=== PATIENT | male | born 1955 | race African-American/Black ===

== ENCOUNTER 2019-12-15 02:03 | Inpatient (IN) | payer MEDICAID ==
[2019-12-15] VITALS (39 sets, daily range): BP systolic 102–156; BP diastolic 41–73
[~2019-12-15] VITALS: Ht 188 cm; Wt 126.3 kg
[2019-12-15 03:15] LABS: Basophils # (auto) 0 10 ^3/uL (0-0.2); Basophils % (auto) 0.4 % (0.0-2.0); Eosinophils # (auto) 0 10 ^3/uL (0-0.8); Eosinophils % (auto) 0.6 % (0.0-7.0); Hematocrit 38.7 % (41.0-53.0); Hemoglobin 12.7 g/dL (13.5-17.5); Lymphocytes # (auto) 2.8 10 ^3/uL (0.4-5.4); Lymphocytes % (auto) 46.5 % (10.0-50.0); Mean Corpuscular Hgb Conc. 32.8 g/dL (32.0-36.0); Mean Corpuscular Volume 94.5 fL (80.0-100.0); Monocytes # (auto) 0.6 10 ^3/uL (0-1.3); Monocytes % (auto) 9.3 % (0.0-12.0); Neutrophils # (auto) 2.6 10 ^3/uL (1.6-8.6); Neutrophils % (auto) 43.2 % (37.0-80.0); Nucleated Red Blood Cells % 0.1 %; Platelet Count (auto) 123 10^3/uL (140-450); Red Cell Distribution Width 14.3 % (11.8-14.3)
[2019-12-15 03:30] LABS: INR 1.11 (0.9-1.15); Partial Thromboplastin Time 26.4 sec (23.64-32.05)
[2019-12-15 03:34] LABS: Albumin 3.5 g/dL (3.4-5.0); Calcium 7.9 mg/dL (8.5-10.1); Magnesium 1.7 mg/dL (1.6-2.6); Potassium 4.3 mmol/L (3.5-5.1)
[2019-12-15 03:36] LABS: BUN/Creatinine Ratio 11.7
[2019-12-15 03:41] LABS: Bilirubin, Total 0.4 mg/dL (0.2-1.0)
[2019-12-15 07:22] LABS: Urine Bacteria FEW /hpf (None Seen); Urine Blood Negative /uL (Negative); Urine Hyaline Cast FEW /lpf (0 - 2); Urine Specific Gravity 1.013 (1.001-1.035); Urine WBC 1 /hpf (0 - 3)
[2019-12-15] MEDS ORDERED: ONDANSETRON HCL 4 MG/2 ML VIAL IV ONE ×2 (09:15→11:45)
[2019-12-15] MEDS ORDERED: MORPHINE SULF INJ 2 MG/ML SYRINGE 1ML IV ONE ×2 (09:15→11:45)
[2019-12-15] MEDS ORDERED: DOPamine 1600MCG/ML D5W 250 ML IV ONE (10:00)
[2019-12-15] MEDS: SODIUM CHLORIDE 0.9% 1,000 ML IV SCH (10:25)
[2019-12-15] MEDS ORDERED: DEXTROSE (50%) 50ML SYRG IV PRN ×2 (12:15)
[2019-12-15] MEDS ORDERED: MORPHINE SULF INJ 2 MG/ML SYRINGE 1ML IV PRN (12:15)
[2019-12-15] MEDS ORDERED: FAMOTIDINE 20 MG TAB PO ONE (12:15)
[2019-12-15] MEDS ORDERED: ONDANSETRON HCL 4 MG/2 ML VIAL IV PRN (12:15)
[2019-12-15] MEDS ORDERED: NITROGLYCERIN 0.4 MG SL TAB SL PRN (12:15)
[2019-12-15] MEDS ORDERED: VERAPAMIL 2.5MG/ML INJ 2ML VIAL IV ONE (12:43)
[2019-12-15] MEDS ORDERED: HEPARIN SODIUM (PORCINE) 5000 UNITS/ML 1ML VIAL ONE (12:43)
[2019-12-15] MEDS ORDERED: ANGIOMAX 250 MG VIAL IV ONE (12:43)
[2019-12-15] MEDS ORDERED: MIDAZOLAM HCL 1MG/1ML-2 ML VIAL ONE (12:44)
[2019-12-15] MEDS ORDERED: LIDOCAINE 2%HCL (LOCAL ANESTH.) INJ 20ML MDV ONE (12:44)
[2019-12-15] MEDS ORDERED: fentaNYL CITRATE 100 MCG/2 ML VL ONE (12:44)
[2019-12-15] MEDS ORDERED: SODIUM CHL 0.9% 0 ML ONE (12:44)
[2019-12-15] MEDS ORDERED: IODIXANOL 320MG/ML 100ML BTL IV ONE ×2 (12:47→13:42)
[2019-12-15] MEDS: DOPamine 1600MCG/ML D5W 250 ML IV SCH ×2 (15:47→21:39)
[2019-12-15] MEDS: ACETAMINOPHEN 500 MG TAB PO PRN (15:48)
[2019-12-15] MEDS ORDERED: ACCU-CHEK COMFORT CURVE STRIP VI SCH (17:00)
[2019-12-15] MEDS ORDERED: InsuLIN REG 1unit/0.01ml Soln (100units/ml) SC SCH (17:00)
[2019-12-15] MEDS: ACCU-CHEK COMFORT CURVE STRIP VI SCH ×2 (17:15→21:41)
[2019-12-15] MEDS: InsuLIN REG 1unit/0.01ml Soln (100units/ml) SC SCH ×2 (17:19→21:46)
[2019-12-15] MEDS: HYDROcodone-ACET 5/325MG TAB PO PRN (19:42)
[2019-12-15] MEDS: ATORVASTATIN 20 MG TAB PO SCH (21:40)
[2019-12-16] VITALS (77 sets, daily range): BP systolic 83–156; BP diastolic 27–125
[2019-12-16 03:52] LABS: Basophils # (auto) 0 10 ^3/uL (0-0.2); Basophils % (auto) 0.3 % (0.0-2.0); Eosinophils # (auto) 0 10 ^3/uL (0-0.8); Eosinophils % (auto) 0.3 % (0.0-7.0); Hematocrit 35.4 % (41.0-53.0); Hemoglobin 11.8 g/dL (13.5-17.5); Lymphocytes # (auto) 1.4 10 ^3/uL (0.4-5.4); Lymphocytes % (auto) 25.2 % (10.0-50.0); Mean Corpuscular Hgb Conc. 33.3 g/dL (32.0-36.0); Mean Corpuscular Volume 92.9 fL (80.0-100.0); Monocytes # (auto) 0.7 10 ^3/uL (0-1.3); Monocytes % (auto) 11.8 % (0.0-12.0); Neutrophils # (auto) 3.6 10 ^3/uL (1.6-8.6); Neutrophils % (auto) 62.4 % (37.0-80.0); Nucleated Red Blood Cells % 0.2 %; Platelet Count (auto) 109 10^3/uL (140-450); Red Blood Cells 3.81 10^6/uL (4.5-5.90); Red Cell Distribution Width 14.1 % (11.8-14.3); White Blood Cell 5.7 10^3/uL (4.4-10.8)
[2019-12-16 04:09] LABS: INR 1.11 (0.9-1.15); Partial Thromboplastin Time 26.4 sec (23.64-32.05)
[2019-12-16 04:11] LABS: Calcium 7.8 mg/dL (8.5-10.1); Potassium 4.6 mmol/L (3.5-5.1)
[2019-12-16 04:14] LABS: BUN/Creatinine Ratio 14.5
[2019-12-16] MEDS: ACCU-CHEK COMFORT CURVE STRIP VI SCH ×4 (06:40→22:00)
[2019-12-16] MEDS: InsuLIN REG 1unit/0.01ml Soln (100units/ml) SC SCH ×4 (06:41→22:52)
[2019-12-16] MEDS: ASPirin-EC 81 mg tab PO SCH (09:35)
[2019-12-16] MEDS: FAMOTIDINE 20 MG TAB PO SCH (09:35)
[2019-12-16] MEDS: SODIUM CHLORIDE 0.9% 1,000 ML IV SCH (09:36)
[2019-12-16] MEDS ORDERED: MELO1TAB73 PO (10:24)
[2019-12-16] MEDS ORDERED: OMEP20TA PO (10:24)
[2019-12-16] MEDS ORDERED: BUPR100T14 PO (10:24)
[2019-12-16] MEDS ORDERED: SIMV-8 PO (10:24)
[2019-12-16] MEDS ORDERED: AMLO5TAB15 PO (10:24)
[2019-12-16] MEDS ORDERED: BENA40TA7 PO (10:24)
[2019-12-16] MEDS ORDERED: TRIATAB3 PO (10:24)
[2019-12-16] MEDS ORDERED: FERR27TA2 PO (10:24)
[2019-12-16] MEDS ORDERED: METF-370 PO (10:24)
[2019-12-16] MEDS ORDERED: TAMS0.4C36 PO (10:24)
[2019-12-16] MEDS ORDERED: ARIP1TAB7 PO (10:24)
[2019-12-16] MEDS ORDERED: FENO54TA4 PO (10:24)
[2019-12-16] MEDS ORDERED: TRAZ100T3 PO (10:24)
[2019-12-16] MEDS ORDERED: cefTRIAXone 1GM/50ML D5W 50 ML IV ONE (10:30)
[2019-12-16] MEDS ORDERED: DIPH2.5T73 PO (10:43)
[2019-12-16] MEDS ORDERED: METO-158 PO (10:43)
[2019-12-16] MEDS ORDERED: CLOP75TA28 PO (10:43)
[2019-12-16] MEDS ORDERED: DOCU-55 PO (10:43)
[2019-12-16] MEDS: DOPamine 1600MCG/ML D5W 250 ML IV SCH (13:12)
[2019-12-16] MEDS: HYDROcodone-ACET 5/325MG TAB PO PRN (16:56)
[2019-12-16] MEDS: ACETAMINOPHEN 500 MG TAB PO PRN (20:16)
[2019-12-16] MEDS: ATORVASTATIN 20 MG TAB PO SCH (22:00)
[2019-12-16] MEDS: ALBUTEROL SULF 2.5 MG/0.5ML(0.5%) NEB SOLN NEB PRN (23:31)
[2019-12-17] VITALS (36 sets, daily range): BP systolic 114–166; BP diastolic 46–109
[2019-12-17] MEDS: HYDROcodone-ACET 5/325MG TAB PO PRN ×2 (00:13→18:23)
[2019-12-17 04:28] LABS: Basophils # (auto) 0 10 ^3/uL (0-0.2); Basophils % (auto) 0.3 % (0.0-2.0); Eosinophils # (auto) 0 10 ^3/uL (0-0.8); Eosinophils % (auto) 0.4 % (0.0-7.0); Hematocrit 35.7 % (41.0-53.0); Lymphocytes # (auto) 1.6 10 ^3/uL (0.4-5.4); Lymphocytes % (auto) 34.1 % (10.0-50.0); Mean Corpuscular Hemoglobin 31.5 pg (28.0-32.0); Mean Corpuscular Hgb Conc. 33.5 g/dL (32.0-36.0); Monocytes # (auto) 0.6 10 ^3/uL (0-1.3); Monocytes % (auto) 12.8 % (0.0-12.0); Neutrophils # (auto) 2.4 10 ^3/uL (1.6-8.6); Neutrophils % (auto) 52.4 % (37.0-80.0); Nucleated Red Blood Cells % 0.1 %; Platelet Count (auto) 110 10^3/uL (140-450); Red Cell Distribution Width 14.5 % (11.8-14.3); White Blood Cell 4.6 10^3/uL (4.4-10.8)
[2019-12-17 05:00] LABS: Potassium 4.5 mmol/L (3.5-5.1)
[2019-12-17 05:10] LABS: Albumin 3.3 g/dL (3.4-5.0); BUN/Creatinine Ratio 16.4; Bilirubin, Total 0.3 mg/dL (0.2-1.0); Calcium 8.1 mg/dL (8.5-10.1); Magnesium 1.8 mg/dL (1.6-2.6); Total Protein 6.6 g/dL (6.4-8.2)
[2019-12-17] MEDS: InsuLIN REG 1unit/0.01ml Soln (100units/ml) SC SCH ×4 (07:03→23:56)
[2019-12-17] MEDS: ACCU-CHEK COMFORT CURVE STRIP VI SCH ×4 (07:03→23:54)
[2019-12-17] MEDS: cefTRIAXone 1GM/50ML D5W 50 ML IV SCH (08:56)
[2019-12-17] MEDS: SODIUM CHLORIDE 0.9% 1,000 ML IV SCH (10:00)
[2019-12-17] MEDS: ASPirin-EC 81 mg tab PO SCH (10:08)
[2019-12-17] MEDS: FAMOTIDINE 20 MG TAB PO SCH (10:08)
[2019-12-17] MEDS: DOPamine 1600MCG/ML D5W 250 ML IV SCH ×2 (11:00→17:23)
[2019-12-17] MEDS ORDERED: ROCURONIUM 10MG/ML 10ML VIAL IV ONE (15:13)
[2019-12-17] MEDS: IPRATROPIUM BROM 0.5 MG/2.5ML INH SOL NEB PRN (19:38)
[2019-12-17] MEDS: ALBUTEROL SULF 2.5 MG/0.5ML(0.5%) NEB SOLN NEB PRN (19:38)
[2019-12-17] MEDS ORDERED: traZODone HCL 50 MG TAB PO ONE (23:00)
[2019-12-17] MEDS ORDERED: traZODone HCL 50 MG TAB ONE ×2 (23:22→23:25)
[2019-12-17] MEDS: ATORVASTATIN 20 MG TAB PO SCH (23:54)
[2019-12-18] VITALS (23 sets, daily range): BP systolic 101–156; BP diastolic 48–83
[2019-12-18 04:29] LABS: Basophils # (auto) 0 10 ^3/uL (0-0.2); Basophils % (auto) 0.4 % (0.0-2.0); Eosinophils # (auto) 0 10 ^3/uL (0-0.8); Eosinophils % (auto) 0.8 % (0.0-7.0); Hematocrit 37.7 % (41.0-53.0); Hemoglobin 12.2 g/dL (13.5-17.5); Lymphocytes # (auto) 1.5 10 ^3/uL (0.4-5.4); Lymphocytes % (auto) 32.7 % (10.0-50.0); Mean Corpuscular Hemoglobin 30.9 pg (28.0-32.0); Mean Corpuscular Hgb Conc. 32.5 g/dL (32.0-36.0); Mean Corpuscular Volume 95.1 fL (80.0-100.0); Monocytes # (auto) 0.5 10 ^3/uL (0-1.3); Monocytes % (auto) 11.2 % (0.0-12.0); Neutrophils # (auto) 2.5 10 ^3/uL (1.6-8.6); Neutrophils % (auto) 54.9 % (37.0-80.0); Platelet Count (auto) 117 10^3/uL (140-450); Red Blood Cells 3.96 10^6/uL (4.5-5.90); Red Cell Distribution Width 14.3 % (11.8-14.3); White Blood Cell 4.5 10^3/uL (4.4-10.8)
[2019-12-18 04:51] LABS: Potassium 4.4 mmol/L (3.5-5.1)
[2019-12-18 04:58] LABS: BUN/Creatinine Ratio 14.6; Calcium 8.6 mg/dL (8.5-10.1)
[2019-12-18] MEDS: ACCU-CHEK COMFORT CURVE STRIP VI SCH ×4 (06:57→21:57)
[2019-12-18] MEDS: InsuLIN REG 1unit/0.01ml Soln (100units/ml) SC SCH ×4 (06:58→22:04)
[2019-12-18] MEDS ORDERED: LIDOCAINE 2%HCL (LOCAL ANESTH.) INJ 20ML MDV ONE ×2 (07:55→08:47)
[2019-12-18] MEDS ORDERED: fentaNYL CITRATE 100 MCG/2 ML VL ONE (08:04)
[2019-12-18] MEDS ORDERED: VANCOMYCIN HCL 1000 MG VL ONE (08:04)
[2019-12-18] MEDS ORDERED: VANCOMYCIN 1GM/250ML 250 ML IV ONE (08:04)
[2019-12-18] MEDS ORDERED: MIDAZOLAM HCL 1MG/1ML-2 ML VIAL ONE (08:04)
[2019-12-18] MEDS ORDERED: IODIXANOL 320MG/ML 100ML BTL IV ONE (08:05)
[2019-12-18] MEDS: cefTRIAXone 1GM/50ML D5W 50 ML IV SCH (09:00)
[2019-12-18] MEDS: VANCOMYCIN 1GM/250ML 250 ML IV SCH ×2 (10:00→21:56)
[2019-12-18] MEDS: ASPirin-EC 81 mg tab PO SCH (10:00)
[2019-12-18] MEDS: SODIUM CHLORIDE 0.9% 1,000 ML IV SCH (10:00)
[2019-12-18] MEDS: FAMOTIDINE 20 MG TAB PO SCH (10:36)
[2019-12-18] MEDS ORDERED: DOXYCYCLINE 100 MG TAB/CAP PO ONE (13:00)
[2019-12-18] MEDS: HYDROcodone-ACET 5/325MG TAB PO PRN ×2 (14:55→21:56)
[2019-12-18] MEDS: DOXYCYCLINE 100 MG TAB/CAP PO SCH (21:57)
[2019-12-18] MEDS: ATORVASTATIN 20 MG TAB PO SCH (21:57)
[2019-12-18] MEDS: traZODone HCL 50 MG TAB PO SCH (23:10)
[2019-12-19 00:55] VITALS: BP 148/74
[2019-12-19] MEDS: MORPHINE SULF INJ 2 MG/ML SYRINGE 1ML IV PRN ×3 (02:40→20:36)
[2019-12-19] MEDS: IPRATROPIUM BROM 0.5 MG/2.5ML INH SOL NEB PRN ×2 (04:51→11:34)
[2019-12-19] MEDS: ALBUTEROL SULF 2.5 MG/0.5ML(0.5%) NEB SOLN NEB PRN ×2 (04:51→11:33)
[2019-12-19] MEDS: HYDROcodone-ACET 5/325MG TAB PO PRN ×2 (04:55→14:18)
[2019-12-19 05:00] VITALS: BP 142/82
[2019-12-19] MEDS: ACCU-CHEK COMFORT CURVE STRIP VI SCH ×4 (06:38→22:39)
[2019-12-19] MEDS: InsuLIN REG 1unit/0.01ml Soln (100units/ml) SC SCH ×4 (06:40→22:44)
[2019-12-19 06:46] LABS: Basophils # (auto) 0 10 ^3/uL (0-0.2); Basophils % (auto) 0.3 % (0.0-2.0); Eosinophils # (auto) 0 10 ^3/uL (0-0.8); Eosinophils % (auto) 0.8 % (0.0-7.0); Hematocrit 36.6 % (41.0-53.0); Lymphocytes # (auto) 1.6 10 ^3/uL (0.4-5.4); Mean Corpuscular Hgb Conc. 32.7 g/dL (32.0-36.0); Mean Corpuscular Volume 94.6 fL (80.0-100.0); Monocytes # (auto) 0.6 10 ^3/uL (0-1.3); Monocytes % (auto) 11.2 % (0.0-12.0); Neutrophils # (auto) 2.9 10 ^3/uL (1.6-8.6); Neutrophils % (auto) 56.7 % (37.0-80.0); Platelet Count (auto) 110 10^3/uL (140-450); Red Blood Cells 3.87 10^6/uL (4.5-5.90); White Blood Cell 5.2 10^3/uL (4.4-10.8)
[2019-12-19 07:06] LABS: Calcium 8.4 mg/dL (8.5-10.1); Magnesium 1.8 mg/dL (1.6-2.6); Potassium 4.1 mmol/L (3.5-5.1)
[2019-12-19 07:10] LABS: BUN/Creatinine Ratio 14.3
[2019-12-19 08:00] VITALS: BP 131/91
[2019-12-19] MEDS: FAMOTIDINE 20 MG TAB PO SCH (08:57)
[2019-12-19] MEDS: DOXYCYCLINE 100 MG TAB/CAP PO SCH ×2 (08:58→22:37)
[2019-12-19] MEDS: ASPirin-EC 81 mg tab PO SCH (09:01)
[2019-12-19] MEDS ORDERED: MAGNESIUM SULFATE 1GM/100ML 100 ML IV ONE (10:00)
[2019-12-19] MEDS: SODIUM CHLORIDE 0.9% 1,000 ML IV SCH (11:12)
[2019-12-19] MEDS ORDERED: DOX100T PO (11:39)
[2019-12-19 12:00] VITALS: BP 151/99
[2019-12-19 16:30] VITALS: BP 139/87
[2019-12-19 21:40] VITALS: BP 120/71
[2019-12-19] MEDS: ATORVASTATIN 20 MG TAB PO SCH (22:37)
[2019-12-19] MEDS: traZODone HCL 50 MG TAB PO SCH (22:37)
[2019-12-20] MEDS: HYDROcodone-ACET 5/325MG TAB PO PRN ×2 (01:29→14:18)
[2019-12-20] MEDS: MORPHINE SULF INJ 2 MG/ML SYRINGE 1ML IV PRN ×3 (03:15→17:03)
[2019-12-20 05:09] VITALS: BP 181/50
[2019-12-20] MEDS: InsuLIN REG 1unit/0.01ml Soln (100units/ml) SC SCH ×4 (06:38→22:47)
[2019-12-20] MEDS: ACCU-CHEK COMFORT CURVE STRIP VI SCH ×4 (06:41→22:45)
[2019-12-20 08:00] VITALS: BP 151/84
[2019-12-20] MEDS: DOXYCYCLINE 100 MG TAB/CAP PO SCH ×2 (09:25→22:41)
[2019-12-20] MEDS: FAMOTIDINE 20 MG TAB PO SCH (09:25)
[2019-12-20 12:00] VITALS: BP 148/82
[2019-12-20] MEDS: DOCUSATE SOD 100 MG CAP PO PRN (14:17)
[2019-12-20 17:00] VITALS: BP 139/82
[2019-12-20] MEDS: IPRATROPIUM BROM 0.5 MG/2.5ML INH SOL NEB PRN (21:04)
[2019-12-20] MEDS: ALBUTEROL SULF 2.5 MG/0.5ML(0.5%) NEB SOLN NEB PRN (21:04)
[2019-12-20] MEDS: traZODone HCL 50 MG TAB PO SCH (22:41)
[2019-12-20] MEDS: ATORVASTATIN 20 MG TAB PO SCH (22:41)
[2019-12-20 22:56] VITALS: BP 163/84
[2019-12-21] MEDS: MORPHINE SULF INJ 2 MG/ML SYRINGE 1ML IV PRN ×4 (02:28→23:48)
[2019-12-21] MEDS: ALBUTEROL SULF 2.5 MG/0.5ML(0.5%) NEB SOLN NEB PRN ×3 (03:41→22:29)
[2019-12-21] MEDS: IPRATROPIUM BROM 0.5 MG/2.5ML INH SOL NEB PRN ×3 (03:41→22:29)
[2019-12-21 05:17] VITALS: BP 163/76
[2019-12-21] MEDS: InsuLIN REG 1unit/0.01ml Soln (100units/ml) SC SCH ×4 (07:00→23:48)
[2019-12-21] MEDS: ACCU-CHEK COMFORT CURVE STRIP VI SCH ×4 (07:38→23:24)
[2019-12-21 09:00] VITALS: BP 128/79
[2019-12-21] MEDS: DOXYCYCLINE 100 MG TAB/CAP PO SCH ×2 (09:06→23:23)
[2019-12-21] MEDS: FAMOTIDINE 20 MG TAB PO SCH (09:06)
[2019-12-21] MEDS: DOCUSATE SOD 100 MG CAP PO PRN (09:09)
[2019-12-21 13:00] VITALS: BP 134/94
[2019-12-21] MEDS ORDERED: LACTULOSE 20Gm/30ML SOLN PO ONE (15:00)
[2019-12-21 17:00] VITALS: BP 134/82
[2019-12-21 20:03] VITALS: BP 134/82
[2019-12-21 22:07] VITALS: BP 137/85
[2019-12-21] MEDS: ATORVASTATIN 20 MG TAB PO SCH (23:23)
[2019-12-21] MEDS: traZODone HCL 50 MG TAB PO SCH (23:23)
[2019-12-21] MEDS: LACTULOSE 20Gm/30ML SOLN PO PRN (23:48)
[2019-12-22] MEDS: DOCUSATE SOD 100 MG CAP PO PRN (04:55)
[2019-12-22 05:27] VITALS: BP 168/90
[2019-12-22] MEDS: ACCU-CHEK COMFORT CURVE STRIP VI SCH ×4 (06:15→21:52)
[2019-12-22] MEDS: MORPHINE SULF INJ 2 MG/ML SYRINGE 1ML IV PRN ×3 (06:16→20:37)
[2019-12-22] MEDS: InsuLIN REG 1unit/0.01ml Soln (100units/ml) SC SCH ×4 (06:22→21:50)
[2019-12-22 09:00] VITALS: BP 130/92
[2019-12-22] MEDS: FAMOTIDINE 20 MG TAB PO SCH (10:13)
[2019-12-22] MEDS: DOXYCYCLINE 100 MG TAB/CAP PO SCH ×2 (10:13→21:43)
[2019-12-22 10:43] LABS: BUN/Creatinine Ratio 15.5; Calcium 8.3 mg/dL (8.5-10.1); Potassium 3.8 mmol/L (3.5-5.1)
[2019-12-22] MEDS ORDERED: FLEET ENEMA(ADULT) 135 ML PR ONE (10:45)
[2019-12-22] MEDS: LACTULOSE 20Gm/30ML SOLN PO PRN (11:00)
[2019-12-22 13:00] VITALS: BP 116/76
[2019-12-22 13:44] LABS: Basophils # (auto) 0 10 ^3/uL (0-0.2); Basophils % (auto) 0.7 % (0.0-2.0); Eosinophils # (auto) 0.1 10 ^3/uL (0-0.8); Eosinophils % (auto) 0.9 % (0.0-7.0); Hematocrit 38.8 % (41.0-53.0); Hemoglobin 12.5 g/dL (13.5-17.5); Lymphocytes # (auto) 1.6 10 ^3/uL (0.4-5.4); Lymphocytes % (auto) 21.5 % (10.0-50.0); Mean Corpuscular Hemoglobin 30.7 pg (28.0-32.0); Mean Corpuscular Hgb Conc. 32.2 g/dL (32.0-36.0); Mean Corpuscular Volume 95.3 fL (80.0-100.0); Monocytes # (auto) 0.7 10 ^3/uL (0-1.3); Monocytes % (auto) 9.8 % (0.0-12.0); Neutrophils # (auto) 4.9 10 ^3/uL (1.6-8.6); Neutrophils % (auto) 67.1 % (37.0-80.0); Nucleated Red Blood Cells % 0.1 %; Platelet Count (auto) 128 10^3/uL (140-450); Red Blood Cells 4.07 10^6/uL (4.5-5.90); Red Cell Distribution Width 14.2 % (11.8-14.3); White Blood Cell 7.2 10^3/uL (4.4-10.8)
[2019-12-22] MEDS: ASPirin-EC 81 mg tab PO SCH (14:12)
[2019-12-22 17:00] VITALS: BP 131/90
[2019-12-22] MEDS: ATORVASTATIN 20 MG TAB PO SCH (21:43)
[2019-12-22] MEDS: traZODone HCL 50 MG TAB PO SCH (21:43)
[2019-12-22 22:00] VITALS: BP 132/72
[2019-12-23] MEDS: MORPHINE SULF INJ 2 MG/ML SYRINGE 1ML IV PRN ×2 (02:56→09:04)
[2019-12-23 05:00] VITALS: BP 149/87
[2019-12-23 06:21] LABS: Basophils # (auto) 0 10 ^3/uL (0-0.2); Basophils % (auto) 0.4 % (0.0-2.0); Eosinophils # (auto) 0.1 10 ^3/uL (0-0.8); Eosinophils % (auto) 1.2 % (0.0-7.0); Hematocrit 32.7 % (41.0-53.0); Hemoglobin 10.8 g/dL (13.5-17.5); Lymphocytes # (auto) 1.8 10 ^3/uL (0.4-5.4); Lymphocytes % (auto) 29.1 % (10.0-50.0); Monocytes # (auto) 0.7 10 ^3/uL (0-1.3); Monocytes % (auto) 11.5 % (0.0-12.0); Neutrophils # (auto) 3.6 10 ^3/uL (1.6-8.6); Neutrophils % (auto) 57.8 % (37.0-80.0); Nucleated Red Blood Cells % 0.1 %; Platelet Count (auto) 121 10^3/uL (140-450); Red Blood Cells 3.47 10^6/uL (4.5-5.90); Red Cell Distribution Width 13.9 % (11.8-14.3); White Blood Cell 6.3 10^3/uL (4.4-10.8)
[2019-12-23] MEDS: InsuLIN REG 1unit/0.01ml Soln (100units/ml) SC SCH ×2 (06:38→13:18)
[2019-12-23] MEDS: ACCU-CHEK COMFORT CURVE STRIP VI SCH ×2 (06:38→13:18)
[2019-12-23 06:40] LABS: BUN/Creatinine Ratio 15.7; Calcium 8.3 mg/dL (8.5-10.1); Potassium 3.8 mmol/L (3.5-5.1)
[2019-12-23 09:00] VITALS: BP 130/78
[2019-12-23] MEDS: DOXYCYCLINE 100 MG TAB/CAP PO SCH (09:03)
[2019-12-23] MEDS: ASPirin-EC 81 mg tab PO SCH (09:03)
[2019-12-23] MEDS: FAMOTIDINE 20 MG TAB PO SCH (09:03)
[2019-12-23] MEDS: IPRATROPIUM BROM 0.5 MG/2.5ML INH SOL NEB PRN (12:01)
[2019-12-23] MEDS: ALBUTEROL SULF 2.5 MG/0.5ML(0.5%) NEB SOLN NEB PRN (12:02)
[2019-12-23 13:00] VITALS: BP 127/87
[2019-12-23] MEDS: HYDROcodone-ACET 5/325MG TAB PO PRN (15:06)
[2019-12-23 15:33] VITALS: BP 127/87
== END 2019-12-23 16:40 | disposition hospice, home (50) | DRG 171 ==
LOC: ER 02:06 → ICU WEST 02:07 → TELE-EAST 12-18 16:57
PROVIDERS: ADMIT Nurse Practitioner Acute Care; ATTEND Internal Medicine
PROC: 4A023N7 Measurement of Cardiac Sampling and Pressure, Left Heart, Percutaneous Approach (ICD-10-PCS; principal; 2019-12-15)
PROC: B211YZZ Fluoroscopy of Multiple Coronary Arteries using Other Contrast (ICD-10-PCS; 2019-12-15)
PROC: B215YZZ Fluoroscopy of Left Heart using Other Contrast (ICD-10-PCS; 2019-12-15)
PROC: 03HB33Z Insertion of Infusion Device into Right Radial Artery, Percutaneous Approach (ICD-10-PCS; 2019-12-15)
PROC: 02H63JZ Insertion of Pacemaker Lead into Right Atrium, Percutaneous Approach (ICD-10-PCS; 2019-12-18)
PROC: 0JH606Z Insertion of Pacemaker, Dual Chamber into Chest Subcutaneous Tissue and Fascia, Open Approach (ICD-10-PCS; 2019-12-18)
PROC: 02HK3JZ Insertion of Pacemaker Lead into Right Ventricle, Percutaneous Approach (ICD-10-PCS; 2019-12-18)
PROC: B517YZZ Fluoroscopy of Left Subclavian Vein using Other Contrast (ICD-10-PCS; 2019-12-18)
PROC: 02HK3JZ Insertion of Pacemaker Lead into Right Ventricle, Percutaneous Approach (ICD-10-PCS; 2019-12-18)
DX: I25.119 Atherosclerotic heart disease of native coronary artery with unspecified angina pectoris (principal); I21.A1 Myocardial infarction type 2; N17.0 Acute kidney failure with tubular necrosis; I50.33 Acute on chronic diastolic (congestive) heart failure; E11.22 Type 2 diabetes mellitus with diabetic chronic kidney disease; D69.6 Thrombocytopenia, unspecified; E11.51 Type 2 diabetes mellitus with diabetic peripheral angiopathy without gangrene; N18.3 Chronic kidney disease, stage 3 (moderate); I49.5 Sick sinus syndrome; E87.1 Hypo-osmolality and hyponatremia; M79.602 Pain in left arm; I13.0 Hypertensive heart and chronic kidney disease with heart failure and stage 1 through stage 4 chronic kidney disease, or unspecified chronic kidney disease; J44.9 Chronic obstructive pulmonary disease, unspecified; R55 Syncope and collapse; E66.9 Obesity, unspecified; D63.8 Anemia in other chronic diseases classified elsewhere; E78.5 Hyperlipidemia, unspecified; F17.210 Nicotine dependence, cigarettes, uncomplicated; Z82.49 Family history of ischemic heart disease and other diseases of the circulatory system; Z87.11 Personal history of peptic ulcer disease; Z79.84 Long term (current) use of oral hypoglycemic drugs; Z91.19 Patient's noncompliance with other medical treatment and regimen; Z68.35 Body mass index [BMI] 35.0-35.9, adult; Z95.0 Presence of cardiac pacemaker; I48.19 Other persistent atrial fibrillation; R00.1 Bradycardia, unspecified
CPT/HCPCS: 33208; 36415; 71045; 75820; 80048; 80053; 80061; 81001; 82962; 83036; 83735; 83880; 84443; 84484; 85025; 85610; 85730; 86141; 87081; 87086; 93005; 93306; 93458; 93971; 94640; 96365; 96375; 96376; 99152; 99153; G0378; J0696; J1815; J2250; J2405; Q9967

== ENCOUNTER 2020-08-05 22:48 | Inpatient (IN) | payer MEDICAID ==
[~2020-08-05] VITALS: Ht 188 cm; Wt 126.0 kg
[~2020-08-05 22:48] MED LIST: AMLO-489 PO; ARIP1TAB7 PO; BUPR100T14 PO; CLOP75TA28 PO; DIPH2.5T73 PO; DOCU-55 PO; DOX100T PO; FENO54TA4 PO; FERR27TA2 PO; MELO1TAB73 PO; METF-370 PO; METO-158 PO; OMEP20TA PO; SIMV-8 PO; TAMS0.4C36 PO; TRAZ100T3 PO; TRIATAB3 PO
[2020-08-05] MEDS ORDERED: ACETAMINOPHEN 325 MG TAB PO ONE (23:15)
[2020-08-06 00:05] LABS: Basophils # (auto) 0 10 ^3/uL (0-0.2); Basophils % (auto) 0.5 % (0.0-2.0); Eosinophils # (auto) 0 10 ^3/uL (0-0.8); Eosinophils % (auto) 0.3 % (0.0-7.0); Hematocrit 31.7 % (41.0-53.0); Hemoglobin 10.5 g/dL (13.5-17.5); Lymphocytes # (auto) 0.7 10 ^3/uL (0.4-5.4); Lymphocytes % (auto) 12.9 % (10.0-50.0); Mean Corpuscular Hemoglobin 31.6 pg (28.0-32.0); Mean Corpuscular Volume 95.7 fL (80.0-100.0); Monocytes # (auto) 0.6 10 ^3/uL (0-1.3); Monocytes % (auto) 11.3 % (0.0-12.0); Neutrophils # (auto) 4.3 10 ^3/uL (1.6-8.6); Nucleated Red Blood Cells % 0.1 %; Red Blood Cells 3.32 10^6/uL (4.5-5.90); Red Cell Distribution Width 13.9 % (11.8-14.3); White Blood Cell 5.7 10^3/uL (4.4-10.8)
[2020-08-06 00:24] LABS: Albumin 3.3 g/dL (3.4-5.0); Calcium 7.7 mg/dL (8.5-10.1); Potassium 4.9 mmol/L (3.5-5.1)
[2020-08-06 00:31] LABS: Bilirubin, Total 0.2 mg/dL (0.2-1.0); Total Protein 6.3 g/dL (6.4-8.2)
[2020-08-06 00:54] LABS: INR 1.11 (0.9-1.15); Partial Thromboplastin Time 25.1 sec (23.0-31.2)
[2020-08-06 05:04] LABS: Urine Bacteria FEW /hpf (None Seen); Urine Blood Negative /uL (Negative); Urine Specific Gravity 1.009 (1.001-1.035); Urine WBC <1 /hpf (0 - 3)
[2020-08-06] MEDS ORDERED: NITROGLYCERIN 0.4 MG SL TAB SL PRN (05:45)
[2020-08-06] MEDS ORDERED: MORPHINE SULFATE INJECTION 2 MG/ML SYRG IV PRN (05:45)
[2020-08-06] MEDS ORDERED: SODIUM CHLORIDE 0.9% 1,000 ML IV SCH (07:15)
[2020-08-06] MEDS ORDERED: DEXTROSE (50%) 50ML SYRG IV PRN (07:15)
[2020-08-06] MEDS: SODIUM CHLORIDE 0.9% 1,000 ML IV ONE ×4 (08:05→11:03)
[2020-08-06] MEDS ORDERED: metFORMIN HYDROCHLORIDE 500 MG TAB PO SCH (08:40)
[2020-08-06] MEDS ORDERED: ENOXAPARIN SOD 100 MG/1 ML SYRINGE SC SCH (10:00)
[2020-08-06] MEDS: ATORVASTATIN 20 MG TAB PO SCH (10:46)
[2020-08-06] MEDS: OMEPRAZOLE 20MG/10ML ORAL SUSP PO SCH ×2 (10:46→11:02)
[2020-08-06] MEDS: BUPROPION HCL 300 MG PO SCH (10:50)
[2020-08-06] MEDS: METOPROLOL TARTRATE 50 MG TAB PO SCH ×2 (10:53→22:13)
[2020-08-06] MEDS: amLODIPine BESYLATE 5 MG TAB PO SCH (10:53)
[2020-08-06] MEDS: InsuLIN REG 1unit/0.01ml Soln (100units/ml) SC SCH ×3 (11:30→22:15)
[2020-08-06] MEDS: ACCU-CHEK COMFORT CURVE STRIP VI SCH ×3 (11:50→22:13)
[2020-08-06] MEDS: SODIUM BICARBONATE 50ML VIAL 50 ML in SOD CHL 0.45% 1,000 ML IV SCH ×2 (13:34→22:30)
[2020-08-06] MEDS: TAMSULOSIN HYDROCHLORIDE 0.4 MG CAP PO SCH (19:09)
[2020-08-06] MEDS: HYDROcodone-ACET 10/325MG TAB PO PRN (20:11)
[2020-08-06 20:15] LABS: BUN/Creatinine Ratio 13.2; Calcium 7.8 mg/dL (8.5-10.1); Potassium 4.6 mmol/L (3.5-5.1)
[2020-08-06] MEDS: ASCORBIC ACID 500 MG TAB PO SCH (22:13)
[2020-08-06] MEDS: ENOXAPARIN SOD 120 MG/0.8 ML SYRINGE SC SCH (22:14)
[2020-08-07] VITALS: BP 113/64
[2020-08-07] MEDS: HYDROcodone-ACET 10/325MG TAB PO PRN ×5 (00:02→19:47)
[2020-08-07] MEDS ORDERED: HYDR-531 PO (05:04)
[2020-08-07] MEDS: ACCU-CHEK COMFORT CURVE STRIP VI SCH ×4 (06:27→22:26)
[2020-08-07] MEDS: InsuLIN REG 1unit/0.01ml Soln (100units/ml) SC SCH ×4 (06:27→22:31)
[2020-08-07 08:00] VITALS: BP 121/70
[2020-08-07] MEDS: BUPROPION HCL 300 MG PO SCH (10:00)
[2020-08-07] MEDS: ATORVASTATIN 20 MG TAB PO SCH (10:05)
[2020-08-07] MEDS: DexAMETHasone SOD PHOS 4 MG/1ML SDV INJ IV SCH (10:05)
[2020-08-07] MEDS: ZINC SULFATE 220mg CAP or TAB PO SCH (10:05)
[2020-08-07] MEDS: METOPROLOL TARTRATE 50 MG TAB PO SCH ×2 (10:06→22:25)
[2020-08-07 10:07] LABS: Basophils # (auto) 0 10 ^3/uL (0-0.2); Basophils % (auto) 0.3 % (0.0-2.0); Eosinophils # (auto) 0 10 ^3/uL (0-0.8); Eosinophils % (auto) 0.3 % (0.0-7.0); Hematocrit 30.8 % (41.0-53.0); Hemoglobin 10.2 g/dL (13.5-17.5); Lymphocytes # (auto) 0.7 10 ^3/uL (0.4-5.4); Lymphocytes % (auto) 23.9 % (10.0-50.0); Mean Corpuscular Hemoglobin 31.7 pg (28.0-32.0); Mean Corpuscular Hgb Conc. 33.2 g/dL (32.0-36.0); Mean Corpuscular Volume 95.6 fL (80.0-100.0); Monocytes # (auto) 0.5 10 ^3/uL (0-1.3); Monocytes % (auto) 17.6 % (0.0-12.0); Neutrophils # (auto) 1.8 10 ^3/uL (1.6-8.6); Neutrophils % (auto) 57.9 % (37.0-80.0); Nucleated Red Blood Cells % 0.1 %; Red Blood Cells 3.23 10^6/uL (4.5-5.90); Red Cell Distribution Width 13.9 % (11.8-14.3); White Blood Cell 3.1 10^3/uL (4.4-10.8)
[2020-08-07] MEDS: CHOLECALCIFEROL (VITD3) 2,000 UNIT CAP/TAB PO SCH (10:07)
[2020-08-07] MEDS: ENOXAPARIN SOD 120 MG/0.8 ML SYRINGE SC SCH ×2 (10:07→22:26)
[2020-08-07] MEDS: ASCORBIC ACID 500 MG TAB PO SCH ×2 (10:07→22:26)
[2020-08-07] MEDS: amLODIPine BESYLATE 5 MG TAB PO SCH (10:07)
[2020-08-07] MEDS: SODIUM BICARBONATE 50ML VIAL 50 ML in SOD CHL 0.45% 1,000 ML IV SCH ×2 (10:08→19:30)
[2020-08-07] MEDS: OMEPRAZOLE 20MG/10ML ORAL SUSP PO SCH (10:23)
[2020-08-07 10:33] LABS: Calcium 7.8 mg/dL (8.5-10.1); Potassium 4.1 mmol/L (3.5-5.1)
[2020-08-07 10:41] LABS: BUN/Creatinine Ratio 12.4; CRP High Sensitivity 1.79 mg/dL (< 0.3)
[2020-08-07] MEDS: guaiFENesin 200 MG/10 ML UD PO PRN (12:11)
[2020-08-07] MEDS: ALBUTEROL SULF HFA 90MCG INH 200DOSE IN PRN ×2 (12:12→20:36)
[2020-08-07 16:00] VITALS: BP 145/84
[2020-08-07] MEDS: TAMSULOSIN HYDROCHLORIDE 0.4 MG CAP PO SCH (17:44)
[2020-08-07] MEDS ORDERED: REMDESIVIR PER PHARMACY 0 ML IV SCH (17:45)
[2020-08-07] MEDS ORDERED: REMDESIVIR 200 MG in NS 210ml LOADING DOSE ADULT IV ONE (20:00)
[2020-08-08] VITALS: BP 131/76
[2020-08-08] MEDS: HYDROcodone-ACET 10/325MG TAB PO PRN ×5 (00:16→23:15)
[2020-08-08] MEDS: SODIUM BICARBONATE 50ML VIAL 50 ML in SOD CHL 0.45% 1,000 ML IV SCH ×3 (06:21→22:06)
[2020-08-08] MEDS: ALBUTEROL SULF HFA 90MCG INH 200DOSE IN PRN (06:31)
[2020-08-08] MEDS: ACCU-CHEK COMFORT CURVE STRIP VI SCH ×4 (06:46→23:01)
[2020-08-08] MEDS: InsuLIN REG 1unit/0.01ml Soln (100units/ml) SC SCH ×4 (06:46→23:13)
[2020-08-08 07:32] LABS: Basophils # (auto) 0 10 ^3/uL (0-0.2); Basophils % (auto) 0.2 % (0.0-2.0); Eosinophils # (auto) 0 10 ^3/uL (0-0.8); Hematocrit 30.5 % (41.0-53.0); Hemoglobin 10.3 g/dL (13.5-17.5); Lymphocytes # (auto) 0.9 10 ^3/uL (0.4-5.4); Lymphocytes % (auto) 26.2 % (10.0-50.0); Mean Corpuscular Hemoglobin 32.1 pg (28.0-32.0); Mean Corpuscular Hgb Conc. 33.7 g/dL (32.0-36.0); Mean Corpuscular Volume 95.2 fL (80.0-100.0); Monocytes # (auto) 0.5 10 ^3/uL (0-1.3); Monocytes % (auto) 14.3 % (0.0-12.0); Neutrophils % (auto) 59.3 % (37.0-80.0); Nucleated Red Blood Cells % 0.2 %; Red Blood Cells 3.21 10^6/uL (4.5-5.90); Red Cell Distribution Width 13.6 % (11.8-14.3); White Blood Cell 3.4 10^3/uL (4.4-10.8)
[2020-08-08 08:00] VITALS: BP 144/80
[2020-08-08 08:43] LABS: Calcium 7.8 mg/dL (8.5-10.1); Potassium 4.3 mmol/L (3.5-5.1)
[2020-08-08 08:49] LABS: Albumin 3.1 g/dL (3.4-5.0); Bilirubin, Total 0.2 mg/dL (0.2-1.0); Total Protein 6.4 g/dL (6.4-8.2)
[2020-08-08] MEDS: BUPROPION HCL 300 MG PO SCH (10:00)
[2020-08-08] MEDS: OMEPRAZOLE 20MG/10ML ORAL SUSP PO SCH (10:00)
[2020-08-08] MEDS: DexAMETHasone SOD PHOS 4 MG/1ML SDV INJ IV SCH (10:12)
[2020-08-08] MEDS: METOPROLOL TARTRATE 50 MG TAB PO SCH ×2 (10:13→22:06)
[2020-08-08] MEDS: ZINC SULFATE 220mg CAP or TAB PO SCH (10:13)
[2020-08-08] MEDS: ASCORBIC ACID 500 MG TAB PO SCH ×2 (10:14→22:06)
[2020-08-08] MEDS: CHOLECALCIFEROL (VITD3) 2,000 UNIT CAP/TAB PO SCH (10:14)
[2020-08-08] MEDS: amLODIPine BESYLATE 5 MG TAB PO SCH (10:14)
[2020-08-08] MEDS: REMDESIVIR 100mg 100 MG in SODIUM CHL 0.9% 230 ML IV SCH (15:36)
[2020-08-08 16:00] VITALS: BP 130/75
[2020-08-08] MEDS: TAMSULOSIN HYDROCHLORIDE 0.4 MG CAP PO SCH (17:34)
[2020-08-08] MEDS: ATORVASTATIN 20 MG TAB PO SCH (22:05)
[2020-08-08] MEDS: ENOXAPARIN SOD 40 MG/0.4 ML SYRINGE SC SCH (22:06)
[2020-08-09] VITALS: BP 139/78
[2020-08-09] MEDS: HYDROcodone-ACET 10/325MG TAB PO PRN ×4 (04:54→22:50)
[2020-08-09] MEDS: guaiFENesin 200 MG/10 ML UD PO PRN ×2 (05:55→17:48)
[2020-08-09] MEDS: InsuLIN REG 1unit/0.01ml Soln (100units/ml) SC SCH ×4 (07:00→22:20)
[2020-08-09] MEDS: ACCU-CHEK COMFORT CURVE STRIP VI SCH ×4 (07:10→22:16)
[2020-08-09 08:00] VITALS: BP 144/69
[2020-08-09 08:57] LABS: Albumin 3.2 g/dL (3.4-5.0); Calcium 7.7 mg/dL (8.5-10.1); Potassium 4.5 mmol/L (3.5-5.1)
[2020-08-09 09:01] LABS: BUN/Creatinine Ratio 16.8; Bilirubin, Total 0.2 mg/dL (0.2-1.0); Total Protein 6.6 g/dL (6.4-8.2)
[2020-08-09 09:54] LABS: Basophils # (auto) 0 10 ^3/uL (0-0.2); Basophils % (auto) 0.2 % (0.0-2.0); Eosinophils # (auto) 0 10 ^3/uL (0-0.8); Hematocrit 33.9 % (41.0-53.0); Hemoglobin 11.1 g/dL (13.5-17.5); Lymphocytes # (auto) 1.3 10 ^3/uL (0.4-5.4); Lymphocytes % (auto) 29.6 % (10.0-50.0); Mean Corpuscular Hemoglobin 31.6 pg (28.0-32.0); Mean Corpuscular Hgb Conc. 32.8 g/dL (32.0-36.0); Mean Corpuscular Volume 96.3 fL (80.0-100.0); Monocytes # (auto) 0.5 10 ^3/uL (0-1.3); Monocytes % (auto) 12.9 % (0.0-12.0); Neutrophils # (auto) 2.4 10 ^3/uL (1.6-8.6); Neutrophils % (auto) 57.3 % (37.0-80.0); Nucleated Red Blood Cells % 0.5 %; Red Blood Cells 3.51 10^6/uL (4.5-5.90); Red Cell Distribution Width 14.1 % (11.8-14.3); White Blood Cell 4.3 10^3/uL (4.4-10.8)
[2020-08-09] MEDS: OMEPRAZOLE 20MG/10ML ORAL SUSP PO SCH (10:00)
[2020-08-09] MEDS: BUPROPION HCL 300 MG PO SCH (10:00)
[2020-08-09] MEDS: DexAMETHasone SOD PHOS 4 MG/1ML SDV INJ IV SCH (10:52)
[2020-08-09] MEDS: SODIUM CHLORIDE 0.9% 1,000 ML IV SCH (10:52)
[2020-08-09] MEDS: ZINC SULFATE 220mg CAP or TAB PO SCH (10:53)
[2020-08-09] MEDS: CHOLECALCIFEROL (VITD3) 2,000 UNIT CAP/TAB PO SCH (10:54)
[2020-08-09] MEDS: amLODIPine BESYLATE 5 MG TAB PO SCH (10:54)
[2020-08-09] MEDS: METOPROLOL TARTRATE 50 MG TAB PO SCH ×2 (10:54→22:15)
[2020-08-09] MEDS: ASCORBIC ACID 500 MG TAB PO SCH ×2 (10:54→22:16)
[2020-08-09] MEDS: ENOXAPARIN SOD 40 MG/0.4 ML SYRINGE SC SCH ×2 (10:55→22:16)
[2020-08-09] MEDS: ALBUTEROL SULF HFA 90MCG INH 200DOSE IN PRN ×2 (13:32→19:41)
[2020-08-09] MEDS: REMDESIVIR 100mg 100 MG in SODIUM CHL 0.9% 230 ML IV SCH (15:06)
[2020-08-09 16:00] VITALS: BP 142/76
[2020-08-09] MEDS: TAMSULOSIN HYDROCHLORIDE 0.4 MG CAP PO SCH (17:36)
[2020-08-09] MEDS: ATORVASTATIN 20 MG TAB PO SCH (22:15)
[2020-08-10] VITALS: BP 151/79
[2020-08-10] MEDS: SODIUM CHLORIDE 0.9% 1,000 ML IV SCH (05:00)
[2020-08-10 06:27] LABS: Basophils # (auto) 0 10 ^3/uL (0-0.2); Basophils % (auto) 0.2 % (0.0-2.0); Eosinophils # (auto) 0 10 ^3/uL (0-0.8); Hematocrit 33.3 % (41.0-53.0); Hemoglobin 11.4 g/dL (13.5-17.5); Lymphocytes # (auto) 1.2 10 ^3/uL (0.4-5.4); Lymphocytes % (auto) 26.3 % (10.0-50.0); Mean Corpuscular Hemoglobin 32.4 pg (28.0-32.0); Mean Corpuscular Hgb Conc. 34.1 g/dL (32.0-36.0); Monocytes # (auto) 0.6 10 ^3/uL (0-1.3); Monocytes % (auto) 12.9 % (0.0-12.0); Neutrophils # (auto) 2.7 10 ^3/uL (1.6-8.6); Neutrophils % (auto) 60.6 % (37.0-80.0); Nucleated Red Blood Cells % 0.2 %; Red Blood Cells 3.51 10^6/uL (4.5-5.90); Red Cell Distribution Width 13.7 % (11.8-14.3); White Blood Cell 4.5 10^3/uL (4.4-10.8)
[2020-08-10 06:43] LABS: Potassium 4.1 mmol/L (3.5-5.1)
[2020-08-10 06:50] LABS: Albumin 3.2 g/dL (3.4-5.0); Bilirubin, Total 0.2 mg/dL (0.2-1.0); Calcium 7.6 mg/dL (8.5-10.1); Total Protein 6.6 g/dL (6.4-8.2)
[2020-08-10] MEDS: InsuLIN REG 1unit/0.01ml Soln (100units/ml) SC SCH ×4 (07:00→22:14)
[2020-08-10] MEDS: ACCU-CHEK COMFORT CURVE STRIP VI SCH ×4 (07:03→22:13)
[2020-08-10 08:00] VITALS: BP 153/73
[2020-08-10] MEDS: BUPROPION HCL 300 MG PO SCH (09:08)
[2020-08-10] MEDS: ZINC SULFATE 220mg CAP or TAB PO SCH (09:10)
[2020-08-10] MEDS: CHOLECALCIFEROL (VITD3) 2,000 UNIT CAP/TAB PO SCH (09:11)
[2020-08-10] MEDS: amLODIPine BESYLATE 5 MG TAB PO SCH (09:11)
[2020-08-10] MEDS: ASCORBIC ACID 500 MG TAB PO SCH ×2 (09:11→22:13)
[2020-08-10] MEDS: OMEPRAZOLE 20MG/10ML ORAL SUSP PO SCH (09:11)
[2020-08-10] MEDS: ENOXAPARIN SOD 40 MG/0.4 ML SYRINGE SC SCH ×2 (09:12→22:14)
[2020-08-10] MEDS: METOPROLOL TARTRATE 50 MG TAB PO SCH ×2 (09:13→22:13)
[2020-08-10] MEDS: DexAMETHasone SOD PHOS 4 MG/1ML SDV INJ IV SCH (10:00)
[2020-08-10] MEDS: ALBUTEROL SULF HFA 90MCG INH 200DOSE IN PRN ×2 (10:03→19:13)
[2020-08-10] MEDS: HYDROcodone-ACET 10/325MG TAB PO PRN ×2 (11:59→21:16)
[2020-08-10 15:32] VITALS: BP 154/81
[2020-08-10] MEDS: REMDESIVIR 100mg 100 MG in SODIUM CHL 0.9% 230 ML IV SCH (17:33)
[2020-08-10] MEDS: TAMSULOSIN HYDROCHLORIDE 0.4 MG CAP PO SCH (18:08)
[2020-08-10] MEDS: ATORVASTATIN 20 MG TAB PO SCH (22:13)
[2020-08-11] VITALS: BP 137/82
[2020-08-11] MEDS: SODIUM CHLORIDE 0.9% 1,000 ML IV SCH ×2 (01:00→21:00)
[2020-08-11] MEDS: InsuLIN REG 1unit/0.01ml Soln (100units/ml) SC SCH ×4 (05:55→22:38)
[2020-08-11] MEDS: ACCU-CHEK COMFORT CURVE STRIP VI SCH ×4 (05:55→22:00)
[2020-08-11] MEDS: ALBUTEROL SULF HFA 90MCG INH 200DOSE IN PRN ×2 (06:35→20:11)
[2020-08-11 08:00] VITALS: BP 143/74
[2020-08-11] MEDS: BUPROPION HCL 300 MG PO SCH (10:00)
[2020-08-11 10:02] LABS: Basophils # (auto) 0 10 ^3/uL (0-0.2); Basophils % (auto) 0.2 % (0.0-2.0); Eosinophils # (auto) 0 10 ^3/uL (0-0.8); Eosinophils % (auto) 0.3 % (0.0-7.0); Hemoglobin 11.3 g/dL (13.5-17.5); Lymphocytes # (auto) 1.6 10 ^3/uL (0.4-5.4); Lymphocytes % (auto) 30.4 % (10.0-50.0); Mean Corpuscular Hemoglobin 31.6 pg (28.0-32.0); Mean Corpuscular Hgb Conc. 33.2 g/dL (32.0-36.0); Monocytes # (auto) 0.5 10 ^3/uL (0-1.3); Neutrophils # (auto) 3.1 10 ^3/uL (1.6-8.6); Neutrophils % (auto) 60.1 % (37.0-80.0); Nucleated Red Blood Cells % 0.1 %; Red Blood Cells 3.58 10^6/uL (4.5-5.90); Red Cell Distribution Width 13.7 % (11.8-14.3); White Blood Cell 5.2 10^3/uL (4.4-10.8)
[2020-08-11 10:06] LABS: Calcium 7.9 mg/dL (8.5-10.1); Potassium 3.8 mmol/L (3.5-5.1)
[2020-08-11 10:09] LABS: BUN/Creatinine Ratio 17.2; Bilirubin, Total 0.3 mg/dL (0.2-1.0)
[2020-08-11] MEDS: DexAMETHasone SOD PHOS 4 MG/1ML SDV INJ IV SCH (10:25)
[2020-08-11] MEDS: ENOXAPARIN SOD 40 MG/0.4 ML SYRINGE SC SCH ×2 (10:25→22:33)
[2020-08-11] MEDS: ZINC SULFATE 220mg CAP or TAB PO SCH (10:26)
[2020-08-11] MEDS: OMEPRAZOLE 20MG/10ML ORAL SUSP PO SCH (10:26)
[2020-08-11] MEDS: amLODIPine BESYLATE 5 MG TAB PO SCH (10:26)
[2020-08-11] MEDS: METOPROLOL TARTRATE 50 MG TAB PO SCH ×2 (10:27→22:34)
[2020-08-11] MEDS: ASCORBIC ACID 500 MG TAB PO SCH ×2 (10:27→22:34)
[2020-08-11] MEDS: CHOLECALCIFEROL (VITD3) 2,000 UNIT CAP/TAB PO SCH (10:27)
[2020-08-11] MEDS: REMDESIVIR 100mg 100 MG in SODIUM CHL 0.9% 230 ML IV SCH (15:22)
[2020-08-11 16:00] VITALS: BP 144/77
[2020-08-11] MEDS: TAMSULOSIN HYDROCHLORIDE 0.4 MG CAP PO SCH (17:39)
[2020-08-11] MEDS: HYDROcodone-ACET 10/325MG TAB PO PRN (21:03)
[2020-08-11] MEDS: ATORVASTATIN 20 MG TAB PO SCH (22:34)
[2020-08-12] VITALS: BP 153/78
[2020-08-12] MEDS: ALBUTEROL SULF HFA 90MCG INH 200DOSE IN PRN (06:06)
[2020-08-12] MEDS: InsuLIN REG 1unit/0.01ml Soln (100units/ml) SC SCH (06:13)
[2020-08-12] MEDS: ACCU-CHEK COMFORT CURVE STRIP VI SCH (06:13)
[2020-08-12 06:27] LABS: Basophils # (auto) 0 10 ^3/uL (0-0.2); Basophils % (auto) 0.1 % (0.0-2.0); Eosinophils # (auto) 0 10 ^3/uL (0-0.8); Eosinophils % (auto) 0.2 % (0.0-7.0); Hematocrit 35.8 % (41.0-53.0); Hemoglobin 12.2 g/dL (13.5-17.5); Lymphocytes # (auto) 1.7 10 ^3/uL (0.4-5.4); Lymphocytes % (auto) 32.9 % (10.0-50.0); Mean Corpuscular Hemoglobin 31.9 pg (28.0-32.0); Monocytes # (auto) 0.6 10 ^3/uL (0-1.3); Monocytes % (auto) 11.2 % (0.0-12.0); Neutrophils # (auto) 2.9 10 ^3/uL (1.6-8.6); Neutrophils % (auto) 55.6 % (37.0-80.0); Red Blood Cells 3.81 10^6/uL (4.5-5.90); Red Cell Distribution Width 13.8 % (11.8-14.3); White Blood Cell 5.3 10^3/uL (4.4-10.8)
[2020-08-12 06:51] LABS: Potassium 3.7 mmol/L (3.5-5.1)
[2020-08-12 06:55] LABS: BUN/Creatinine Ratio 18.7; Calcium 8.2 mg/dL (8.5-10.1)
[2020-08-12 08:00] VITALS: BP 152/82
[2020-08-12] MEDS: ZINC SULFATE 220mg CAP or TAB PO SCH (09:23)
[2020-08-12] MEDS: DexAMETHasone SOD PHOS 4 MG/1ML SDV INJ IV SCH (09:23)
[2020-08-12] MEDS: amLODIPine BESYLATE 5 MG TAB PO SCH (09:24)
[2020-08-12] MEDS: METOPROLOL TARTRATE 50 MG TAB PO SCH (09:24)
[2020-08-12] MEDS: ASCORBIC ACID 500 MG TAB PO SCH (09:24)
[2020-08-12] MEDS: CHOLECALCIFEROL (VITD3) 2,000 UNIT CAP/TAB PO SCH (09:25)
[2020-08-12] MEDS: ENOXAPARIN SOD 40 MG/0.4 ML SYRINGE SC SCH (09:25)
[2020-08-12] MEDS: OMEPRAZOLE 20MG/10ML ORAL SUSP PO SCH (10:00)
[2020-08-12] MEDS: BUPROPION HCL 300 MG PO SCH (10:00)
[2020-08-12 10:12] VITALS: BP 152/82
== END 2020-08-12 11:16 | disposition home or self-care (01) | DRG 137 ==
LOC: EDBD 22:48 → EDUNIT# 22:48 → ER 22:52 → TELE 22:53 → TELE-EAST 08-06 18:39
PROVIDERS: ADMIT Internal Medicine; ATTEND Internal Medicine
PROC: XW033E5 Introduction of Remdesivir Anti-infective into Peripheral Vein, Percutaneous Approach, New Technology Group 5 (ICD-10-PCS; principal; 2020-08-05)
DX: U07.1 COVID-19 (principal); J12.82 Pneumonia due to coronavirus disease 2019; N17.0 Acute kidney failure with tubular necrosis; N18.9 Chronic kidney disease, unspecified; E87.2 Acidosis; D63.1 Anemia in chronic kidney disease; J96.01 Acute respiratory failure with hypoxia; I26.99 Other pulmonary embolism without acute cor pulmonale; E11.22 Type 2 diabetes mellitus with diabetic chronic kidney disease; F17.210 Nicotine dependence, cigarettes, uncomplicated; I13.0 Hypertensive heart and chronic kidney disease with heart failure and stage 1 through stage 4 chronic kidney disease, or unspecified chronic kidney disease; I50.9 Heart failure, unspecified; J44.0 Chronic obstructive pulmonary disease with (acute) lower respiratory infection; Z79.4 Long term (current) use of insulin; Z82.49 Family history of ischemic heart disease and other diseases of the circulatory system; Z95.0 Presence of cardiac pacemaker
CPT/HCPCS: 36415; 71045; 71250; 76775; 80048; 80053; 81001; 82728; 82962; 83615; 83735; 83880; 84484; 85025; 85379; 85610; 85730; 86141; 87081; 87426; 93005; 93970; 93971; 94640; 96361; 96372; 96374; G0378; J1100; J1815

== ENCOUNTER 2020-12-28 09:48 | Inpatient (IN) | payer MEDICAID ==
[~2020-12-28] VITALS: Ht 188 cm; Wt 116.1 kg
[~2020-12-28 09:48] MED LIST changes: +HYDR-531 PO
[2020-12-28] MEDS ORDERED: ASPirin 81 mg TAB PO ONE (10:15)
[2020-12-28 10:53] LABS: Basophils # (auto) 0 10 ^3/uL (0-0.2); Basophils % (auto) 0.8 % (0.0-2.0); Eosinophils # (auto) 0.1 10 ^3/uL (0-0.8); Eosinophils % (auto) 1.1 % (0.0-7.0); Hemoglobin 13.7 g/dL (13.5-17.5); Lymphocytes # (auto) 1.7 10 ^3/uL (0.4-5.4); Lymphocytes % (auto) 26.7 % (10.0-50.0); Mean Corpuscular Hemoglobin 31.6 pg (28.0-32.0); Mean Corpuscular Hgb Conc. 34.2 g/dL (32.0-36.0); Mean Corpuscular Volume 92.6 fL (80.0-100.0); Monocytes # (auto) 0.6 10 ^3/uL (0-1.3); Monocytes % (auto) 9.2 % (0.0-12.0); Neutrophils # (auto) 3.8 10 ^3/uL (1.6-8.6); Neutrophils % (auto) 62.2 % (37.0-80.0); Nucleated Red Blood Cells % 0.1 %; Platelet Count (auto) 134 10^3/uL (140-450); Red Blood Cells 4.32 10^6/uL (4.5-5.90); Red Cell Distribution Width 13.7 % (11.8-14.3); White Blood Cell 6.2 10^3/uL (4.4-10.8)
[2020-12-28 11:21] LABS: Albumin 3.3 g/dL (3.4-5.0); Anion Gap 7 (5-15); Blood Urea Nitrogen 19 mg/dL (7-18); Carbon Dioxide 23 mmol/L (21-32); Chloride 104 mmol/L (98-107); Glucose 132 mg/dL (74-106); Potassium 4.7 mmol/L (3.5-5.1); Sodium 134 mmol/L (136-145)
[2020-12-28 11:27] LABS: Alanine Aminotransferase 38 U/L (16-61); Alkaline Phosphatase 67 U/L (45-117); Aspartate Aminotransferase 34 U/L (15-37); BUN/Creatinine Ratio 14.1; Bilirubin, Total 0.5 mg/dL (0.2-1.0); GFR African American 68 mL/min; GFR Non-African American 57 mL/min; Total Protein 6.7 g/dL (6.4-8.2)
[2020-12-28 12:31] LABS: Urine Bacteria NONE SEEN /hpf (None Seen); Urine Blood Negative /uL (Negative); Urine WBC 1 /hpf (0 - 3)
[2020-12-28] MEDS ORDERED: NITROGLYCERIN 0.4 MG SL TAB SL PRN (13:00)
[2020-12-28] MEDS ORDERED: HYDROcodone-ACET 5/325MG TAB PO PRN (13:00)
[2020-12-28] MEDS ORDERED: ACETAMINOPHEN 325 MG TAB PO PRN (13:00)
[2020-12-28] MEDS ORDERED: DEXTROSE (50%) 50ML SYRG IV PRN (13:00)
[2020-12-28] MEDS ORDERED: ONDANSETRON HCL 4 MG/2 ML VIAL IV PRN (13:00)
[2020-12-28] MEDS ORDERED: MORPHINE SULF INJ 2 MG/ML SYRINGE 1ML IV PRN ×2 (13:00)
[2020-12-28 16:21] VITALS: BP 100/58
[2020-12-28] MEDS ORDERED: InsuLIN REG 1unit/0.01ml Soln (100units/ml) SC SCH (17:00)
[2020-12-28] MEDS ORDERED: ACCU-CHEK COMFORT CURVE STRIP VI SCH (17:00)
[2020-12-28] MEDS ORDERED: ATORVASTATIN 20 MG TAB PO ONE (22:00)
[2020-12-29] MEDS ORDERED: ENOXAPARIN SOD 40 MG/0.4 ML SYRINGE SC SCH (10:00)
== END 2020-12-28 17:15 | disposition left against medical advice (07) | DRG 198 ==
LOC: ER 09:48 → TELE 12:54
PROVIDERS: ADMIT Internal Medicine; ATTEND Internal Medicine
DX: I24.9 Acute ischemic heart disease, unspecified (principal); N17.9 Acute kidney failure, unspecified; I11.0 Hypertensive heart disease with heart failure; E87.1 Hypo-osmolality and hyponatremia; E88.09 Other disorders of plasma-protein metabolism, not elsewhere classified; I50.9 Heart failure, unspecified; Z20.822 Contact with and (suspected) exposure to COVID-19; E11.9 Type 2 diabetes mellitus without complications; E78.5 Hyperlipidemia, unspecified; F17.210 Nicotine dependence, cigarettes, uncomplicated; F51.04 Psychophysiologic insomnia; Z53.29 Procedure and treatment not carried out because of patient's decision for other reasons; J44.9 Chronic obstructive pulmonary disease, unspecified; N40.0 Benign prostatic hyperplasia without lower urinary tract symptoms; Z95.0 Presence of cardiac pacemaker
CPT/HCPCS: 36415; 71045; 80053; 81001; 84484; 85025; 87426; 93005; 93306; 96374; 96375; G0378; J2405

== ENCOUNTER 2021-07-26 10:00 | Emergency (ER) | payer MEDICAID ==
[~2021-07-26] VITALS: Ht 188 cm; Wt 117.9 kg
[~2021-07-26 10:00] MED LIST changes: +BUPR-160 PO; -BUPR100T14 PO
[2021-07-26 11:15] LABS: Urine Bacteria NONE SEEN /hpf (None Seen); Urine Blood Negative /uL (Negative); Urine Specific Gravity 1.011 (1.001-1.035); Urine WBC 1 /hpf (0 - 3)
[2021-07-26 11:57] LABS: Basophils # (auto) 0 10 ^3/uL (0-0.2); Basophils % (auto) 0.5 % (0.0-2.0); Eosinophils # (auto) 0 10 ^3/uL (0-0.8); Eosinophils % (auto) 0.4 % (0.0-7.0); Hematocrit 37.3 % (41.0-53.0); Hemoglobin 12.3 g/dL (13.5-17.5); Lymphocytes # (auto) 1.9 10 ^3/uL (0.4-5.4); Lymphocytes % (auto) 25.9 % (10.0-50.0); Mean Corpuscular Hemoglobin 31.4 pg (28.0-32.0); Mean Corpuscular Hgb Conc. 32.9 g/dL (32.0-36.0); Mean Corpuscular Volume 95.4 fL (80.0-100.0); Monocytes # (auto) 0.5 10 ^3/uL (0-1.3); Monocytes % (auto) 7.3 % (0.0-12.0); Neutrophils # (auto) 4.8 10 ^3/uL (1.6-8.6); Neutrophils % (auto) 65.9 % (37.0-80.0); Nucleated Red Blood Cells % 0.1 %; Red Blood Cells 3.91 10^6/uL (4.5-5.90); Red Cell Distribution Width 14.1 % (11.8-14.3); White Blood Cell 7.3 10^3/uL (4.4-10.8)
[2021-07-26 12:10] LABS: Albumin 3.5 g/dL (3.4-5.0); Calcium 8.7 mg/dL (8.5-10.1)
[2021-07-26 12:15] LABS: BUN/Creatinine Ratio 11.2; Bilirubin, Total 0.5 mg/dL (0.2-1.0); Total Protein 7.2 g/dL (6.4-8.2)
[2021-07-26 16:59] VITALS: BP 134/82
== END 2021-07-26 17:00 | disposition home or self-care (01) ==
LOC: ER 10:00
DX: K92.2 Gastrointestinal hemorrhage, unspecified (principal); I11.0 Hypertensive heart disease with heart failure; I50.9 Heart failure, unspecified; E11.9 Type 2 diabetes mellitus without complications; J44.9 Chronic obstructive pulmonary disease, unspecified; F17.210 Nicotine dependence, cigarettes, uncomplicated; Z79.01 Long term (current) use of anticoagulants; Z79.899 Other long term (current) drug therapy; Z79.2 Long term (current) use of antibiotics
CPT/HCPCS: 36415; 71045; 74176; 80053; 81001; 84484; 85025; 93005

== ENCOUNTER 2022-03-10 09:41 | Emergency (ER) | payer MEDICAID ==
[~2022-03-10] VITALS: Ht 188 cm; Wt 110.2 kg
[2022-03-10 11:08] VITALS: BP 100/57
[2022-03-10 11:20] LABS: Basophils # (auto) 0 10 ^3/uL (0-0.2); Basophils % (auto) 0.5 % (0.0-2.0); Eosinophils # (auto) 0 10 ^3/uL (0-0.8); Eosinophils % (auto) 0.5 % (0.0-7.0); Hemoglobin 13.4 g/dL (13.5-17.5); Lymphocytes % (auto) 25.5 % (10.0-50.0); Mean Corpuscular Hemoglobin 30.8 pg (28.0-32.0); Mean Corpuscular Hgb Conc. 31.8 g/dL (32.0-36.0); Mean Corpuscular Volume 96.8 fL (80.0-100.0); Monocytes # (auto) 0.7 10 ^3/uL (0-1.3); Monocytes % (auto) 9.2 % (0.0-12.0); Neutrophils % (auto) 64.3 % (37.0-80.0); Nucleated Red Blood Cells % 0.1 %; Red Blood Cells 4.34 10^6/uL (4.5-5.90); Red Cell Distribution Width 13.8 % (11.8-14.3); White Blood Cell 7.9 10^3/uL (4.4-10.8)
[2022-03-10 11:24] LABS: Albumin 3.2 g/dL (3.4-5.0); Anion Gap 7 (5-15); Blood Alcohol < 3.0 mg/dL (0-5); Blood Urea Nitrogen 24 mg/dL (7-18); Calcium 9.4 mg/dL (8.5-10.1); Carbon Dioxide 21 mmol/L (21-32); Chloride 108 mmol/L (98-107); Glucose 128 mg/dL (74-106); Potassium 4.4 mmol/L (3.5-5.1); Sodium 136 mmol/L (136-145)
[2022-03-10 11:27] LABS: Alanine Aminotransferase 28 U/L (16-61); Alkaline Phosphatase 157 U/L (45-117); Aspartate Aminotransferase 21 U/L (15-37); BUN/Creatinine Ratio 14.7; Bilirubin, Total 0.6 mg/dL (0.2-1.0); GFR African American 55 mL/min; GFR Non-African American 45 mL/min; Total Protein 7.7 g/dL (6.4-8.2)
[2022-03-10] MEDS ORDERED: methylPREDNISolone SOD SUCC 125 MG/2 ML VL IM ONE (11:45)
[2022-03-10] MEDS ORDERED: KETOROLAC TROMETH 60MG/2ML VIAL IM ONE (11:45)
[2022-03-10 11:58] LABS: INR 1.13 (0.9-1.15)
[2022-03-10] MEDS ORDERED: PRED20TA2 PO (12:13)
[2022-03-10] MEDS ORDERED: TRAM-297 PO (12:13)
[2022-03-10] MEDS ORDERED: COLC1CAP PO (12:13)
== END 2022-03-10 12:42 | disposition home or self-care (01) ==
LOC: ER 09:41
DX: M19.022 Primary osteoarthritis, left elbow (principal); M10.9 Gout, unspecified; F17.210 Nicotine dependence, cigarettes, uncomplicated; J44.9 Chronic obstructive pulmonary disease, unspecified; E11.9 Type 2 diabetes mellitus without complications; I10 Essential (primary) hypertension
CPT/HCPCS: 36415; 73080; 80053; 80320; 83880; 84484; 84550; 85025; 85610; 93005; 93971; 96372; 99285; J1885; J2930

== ENCOUNTER 2022-11-03 08:40 | Inpatient (IN) | payer MEDICAID ==
[~2022-11-03] VITALS: Ht 188 cm; Wt 122.4 kg
[~2022-11-03 08:40] MED LIST changes: +COLC1CAP PO; +PRED20TA2 PO; +TRAM-297 PO
[2022-11-03 09:35] LABS: Albumin 3.1 g/dL (3.4-5.0); Calcium 8.3 mg/dL (8.5-10.1); Potassium 3.6 mmol/L (3.5-5.1)
[2022-11-03 09:40] LABS: BUN/Creatinine Ratio 10.8 (10.0-20.0); Bilirubin, Total 0.6 mg/dL (0.2-1.0); Total Protein 6.8 g/dL (6.4-8.2)
[2022-11-03 09:41] LABS: Basophils # (auto) 0 10 ^3/uL (0-0.2); Basophils % (auto) 0.5 % (0.0-2.0); Eosinophils # (auto) 0 10 ^3/uL (0-0.8); Eosinophils % (auto) 0.4 % (0.0-7.0); Hematocrit 38.9 % (41.0-53.0); Hemoglobin 12.7 g/dL (13.5-17.5); Lymphocytes # (auto) 1.6 10 ^3/uL (0.4-5.4); Lymphocytes % (auto) 25.7 % (10.0-50.0); Mean Corpuscular Hemoglobin 31.6 pg (28.0-32.0); Mean Corpuscular Hgb Conc. 32.8 g/dL (32.0-36.0); Mean Corpuscular Volume 96.2 fL (80.0-100.0); Monocytes # (auto) 0.6 10 ^3/uL (0-1.3); Neutrophils % (auto) 63.4 % (37.0-80.0); Nucleated Red Blood Cells % 0.1 %; Red Blood Cells 4.04 10^6/uL (4.5-5.90); Red Cell Distribution Width 14.4 % (11.8-14.3); White Blood Cell 6.3 10^3/uL (4.4-10.8)
[2022-11-03 10:01] LABS: Urine Bacteria NONE SEEN /hpf (None Seen); Urine Blood Negative /uL (Negative); Urine Specific Gravity 1.015 (1.001-1.035); Urine WBC <1 /hpf (0 - 3)
[2022-11-03] MEDS ORDERED: DEXTROSE (50%) 50ML SYRG IV PRN (15:15)
[2022-11-03] MEDS ORDERED: IPRATROPIUM BROM 0.5 MG/2.5ML INH SOL NEB PRN (15:15)
[2022-11-03] MEDS ORDERED: ALBUTEROL SULF 2.5 MG/0.5ML(0.5%) NEB SOLN NEB PRN (15:15)
[2022-11-03 17:06] LABS: INR 1.16 (0.9-1.15)
[2022-11-03] MEDS: ACCU-CHEK COMFORT CURVE STRIP VI SCH (22:54)
[2022-11-03] MEDS: InsuLIN REG 1unit/0.01ml Soln (100units/ml) SC SCH (22:55)
[2022-11-03] MEDS: ATORVASTATIN 20 MG TAB PO SCH (22:56)
[2022-11-03] MEDS: TAMSULOSIN HYDROCHLORIDE 0.4 MG CAP PO SCH (22:56)
[2022-11-03] MEDS: DOCUSATE SOD 100 MG CAP PO SCH (23:01)
[2022-11-03] MEDS: METOPROLOL TARTRATE 50 MG TAB PO SCH (23:04)
[2022-11-03] MEDS: FUROSEMIDE 20 MG/2 ML VIAL IV SCH (23:43)
[2022-11-04] VITALS (8 sets, daily range): BP systolic 123–130; BP diastolic 67–74
[2022-11-04] MEDS ORDERED: ONDANSETRON HCL 4 MG/2 ML VIAL IV PRN (03:30)
[2022-11-04] MEDS: MORPHINE SULFATE INJ 2 MG/ml SYRG IV PRN ×3 (04:02→18:30)
[2022-11-04] MEDS: ACCU-CHEK COMFORT CURVE STRIP VI SCH ×4 (06:18→22:05)
[2022-11-04] MEDS: InsuLIN REG 1unit/0.01ml Soln (100units/ml) SC SCH ×4 (06:18→22:00)
[2022-11-04 08:08] LABS: Basophils # (auto) 0 10 ^3/uL (0-0.2); Basophils % (auto) 0.7 % (0.0-2.0); Eosinophils # (auto) 0 10 ^3/uL (0-0.8); Eosinophils % (auto) 0.6 % (0.0-7.0); Hematocrit 38.6 % (41.0-53.0); Hemoglobin 12.7 g/dL (13.5-17.5); Lymphocytes # (auto) 1.4 10 ^3/uL (0.4-5.4); Mean Corpuscular Hemoglobin 31.3 pg (28.0-32.0); Mean Corpuscular Hgb Conc. 32.9 g/dL (32.0-36.0); Mean Corpuscular Volume 95.3 fL (80.0-100.0); Monocytes # (auto) 0.7 10 ^3/uL (0-1.3); Monocytes % (auto) 10.2 % (0.0-12.0); Neutrophils # (auto) 4.5 10 ^3/uL (1.6-8.6); Neutrophils % (auto) 67.5 % (37.0-80.0); Nucleated Red Blood Cells % 0.2 %; Red Blood Cells 4.06 10^6/uL (4.5-5.90); White Blood Cell 6.6 10^3/uL (4.4-10.8)
[2022-11-04 08:24] LABS: Albumin 2.9 g/dL (3.4-5.0); Calcium 8.5 mg/dL (8.5-10.1); Potassium 3.7 mmol/L (3.5-5.1)
[2022-11-04 08:27] LABS: BUN/Creatinine Ratio 12.4 (10.0-20.0); Bilirubin, Total 0.8 mg/dL (0.2-1.0); Total Protein 6.6 g/dL (6.4-8.2)
[2022-11-04] MEDS: FERROUS GLUCONATE 65 MG PO SCH (10:00)
[2022-11-04] MEDS ORDERED: ENOXAPARIN SOD 40 MG/0.4 ML SYRINGE SC SCH (10:00)
[2022-11-04] MEDS: DOCUSATE SOD 100 MG CAP PO SCH ×2 (10:00→22:03)
[2022-11-04] MEDS ORDERED: PATIENTS OWN MEDICATION (Simvastatin 20 MG) PO SCH (10:00)
[2022-11-04] MEDS: TRIAMTERENE/HCTZ 37.5/25 MG CAP/TAB PO SCH (10:00)
[2022-11-04] MEDS: buPROPion HCL 100 MG TAB PO SCH (10:44)
[2022-11-04] MEDS: NICOTINE 21MG/24 HR TOPICAL PATCH TD SCH (10:44)
[2022-11-04] MEDS: METOPROLOL TARTRATE 50 MG TAB PO SCH ×2 (10:45→22:03)
[2022-11-04] MEDS: amLODIPine BESYLATE 5 MG TAB PO SCH (10:46)
[2022-11-04] MEDS: FUROSEMIDE 20 MG/2 ML VIAL IV SCH ×2 (10:46→22:00)
[2022-11-04] MEDS: CLOPIDOGREL BISULFATE 75 MG TAB PO SCH (14:08)
[2022-11-04] MEDS: TAMSULOSIN HYDROCHLORIDE 0.4 MG CAP PO SCH (17:55)
[2022-11-04] MEDS: ATORVASTATIN 20 MG TAB PO SCH (22:03)
[2022-11-05] MEDS: MORPHINE SULFATE INJ 2 MG/ml SYRG IV PRN ×3 (01:21→11:27)
[2022-11-05 05:00] VITALS: BP 115/70
[2022-11-05] MEDS: InsuLIN REG 1unit/0.01ml Soln (100units/ml) SC SCH ×3 (06:14→17:00)
[2022-11-05] MEDS: ACCU-CHEK COMFORT CURVE STRIP VI SCH ×3 (06:15→17:00)
[2022-11-05 08:00] VITALS: BP 133/73
[2022-11-05 09:10] VITALS: BP 133/73
[2022-11-05] MEDS: FERROUS GLUCONATE 65 MG PO SCH (10:00)
[2022-11-05] MEDS: FUROSEMIDE 20 MG/2 ML VIAL IV SCH (10:00)
[2022-11-05] MEDS: TRIAMTERENE/HCTZ 37.5/25 MG CAP/TAB PO SCH (10:00)
[2022-11-05] MEDS: DOCUSATE SOD 100 MG CAP PO SCH (10:41)
[2022-11-05] MEDS: buPROPion HCL 100 MG TAB PO SCH (10:41)
[2022-11-05] MEDS: CLOPIDOGREL BISULFATE 75 MG TAB PO SCH (10:42)
[2022-11-05] MEDS: METOPROLOL TARTRATE 50 MG TAB PO SCH (10:42)
[2022-11-05] MEDS: amLODIPine BESYLATE 5 MG TAB PO SCH (10:42)
[2022-11-05] MEDS: NICOTINE 21MG/24 HR TOPICAL PATCH TD SCH (10:43)
[2022-11-05 13:00] VITALS: BP 136/73
[2022-11-05 15:39] VITALS: BP 137/75
[2022-11-05] MEDS: TAMSULOSIN HYDROCHLORIDE 0.4 MG CAP PO SCH (18:00)
== END 2022-11-05 16:50 | disposition home or self-care (01) | DRG 194 ==
LOC: ER 08:40 → TELE 15:01 → TELE-EAST 11-04 02:21
PROVIDERS: ADMIT Nurse Practitioner Family; ATTEND Internal Medicine
DX: I11.0 Hypertensive heart disease with heart failure (principal); I21.A1 Myocardial infarction type 2; D69.6 Thrombocytopenia, unspecified; J44.1 Chronic obstructive pulmonary disease with (acute) exacerbation; D50.0 Iron deficiency anemia secondary to blood loss (chronic); E11.9 Type 2 diabetes mellitus without complications; I50.43 Acute on chronic combined systolic (congestive) and diastolic (congestive) heart failure; F17.210 Nicotine dependence, cigarettes, uncomplicated; N62 Hypertrophy of breast; Z82.49 Family history of ischemic heart disease and other diseases of the circulatory system; Z83.3 Family history of diabetes mellitus; Z95.0 Presence of cardiac pacemaker
CPT/HCPCS: 36415; 71045; 76642; 80053; 81001; 82962; 83880; 84484; 85025; 85379; 85384; 85610; 93005; 93306; 99291; G0378; J1815

== ENCOUNTER 2023-04-26 17:18 | Inpatient (IN) | payer OTHER, MEDICAID ==
[~2023-04-26] VITALS: Ht 188 cm; Wt 129.9 kg
[~2023-04-26 17:18] MED LIST changes: -AMLO-489 PO; +AMLO1TAB22 PO; -BUPR-160 PO; +BUPR-346 PO; +FERR1TAB31 PO; -FERR27TA2 PO; -MELO1TAB73 PO; +MELO7.5T7 PO; -SIMV-8 PO; +SIMV20TA20 PO; +TRAZ-228 PO; -TRAZ100T3 PO
[2023-04-26 18:10] VITALS: PULSE 69; RESP 24; O2SAT 98
[2023-04-26 18:21] LABS: Basophils # (auto) 0 10 ^3/uL (0-0.2); Basophils % (auto) 0.3 % (0.0-2.0); Eosinophils # (auto) 0 10 ^3/uL (0-0.8); Eosinophils % (auto) 0.2 % (0.0-7.0); Hemoglobin 11.8 g/dL (13.5-17.5); Lymphocytes # (auto) 1.7 10 ^3/uL (0.4-5.4); Lymphocytes % (auto) 21.4 % (10.0-50.0); Mean Corpuscular Hemoglobin 31.5 pg (28.0-32.0); Mean Corpuscular Hgb Conc. 31.8 g/dL (32.0-36.0); Mean Corpuscular Volume 99.1 fL (80.0-100.0); Monocytes # (auto) 0.8 10 ^3/uL (0-1.3); Monocytes % (auto) 10.5 % (0.0-12.0); Neutrophils # (auto) 5.2 10 ^3/uL (1.6-8.6); Neutrophils % (auto) 67.6 % (37.0-80.0); Nucleated Red Blood Cells % 0.1 %; Red Blood Cells 3.73 10^6/uL (4.5-5.90); Red Cell Distribution Width 14.9 % (11.8-14.3); White Blood Cell 7.7 10^3/uL (4.4-10.8)
[2023-04-26 18:37] LABS: Alanine Aminotransferase 14 U/L (7-40); Albumin 3.6 g/dL (3.2-4.8); Alkaline Phosphatase 208 U/L (46-116); Anion Gap 8 (5-15); Aspartate Aminotransferase 25 U/L (13-40); BUN/Creatinine Ratio 8.1 (10.0-20.0); Bilirubin, Total 0.9 mg/dL (0.2-1.0); Blood Urea Nitrogen 8 mg/dL (9-23); Calcium 8.4 mg/dL (8.7-10.4); Carbon Dioxide 23 mmol/L (20-30); Chloride 102 mmol/L (98-107); Glucose 116 mg/dL (74-106); Potassium 3.9 mmol/L (3.5-5.1); Sodium 133 mmol/L (136-145); Total Protein 6.2 g/dL (5.7-8.2)
[2023-04-26 19:30] VITALS: PULSE 69; RESP 20; O2SAT 98
[2023-04-26 20:11] LABS: Urine Bacteria NONE SEEN /hpf (None Seen); Urine Blood Negative /uL (Negative); Urine Clarity Clear (Clear); Urine Color Yellow (Yellow); Urine Protein, UAD TRACE (Negative); Urine WBC 3 /hpf (0 - 3)
[2023-04-26] MEDS ORDERED: methylPREDNISolone SOD SUCC 40 MG/ML VL IV ONE (20:30)
[2023-04-26] MEDS ORDERED: FUROSEMIDE 100 MG/10ML VIAL IV ONE (20:30)
[2023-04-26] MEDS ORDERED: cefTRIAXone 1GM/50ML D5W 50 ML IV ONE (20:30)
[2023-04-26] MEDS ORDERED: IPRATROPIUM BROM 0.5 MG/2.5ML INH SOL NEB ONE (20:30)
[2023-04-26] MEDS ORDERED: ALBUTEROL SULF 2.5 MG/0.5ML(0.5%) NEB SOLN NEB ONE (20:30)
[2023-04-26] MEDS ORDERED: methylPREDNISolone SOD SUCC 125 MG/2 ML VL ONE (20:35)
[2023-04-26] MEDS ORDERED: NITROGLYCERIN 0.4 MG SL TAB SL PRN (21:00)
[2023-04-26] MEDS ORDERED: DEXTROSE (50%) 50ML SYRG IV PRN (21:00)
[2023-04-26] MEDS ORDERED: ONDANSETRON HCL 4 MG/2 ML VIAL IV PRN (21:00)
[2023-04-26] MEDS ORDERED: ACETAMINOPHEN 325 MG TAB PO PRN (21:00)
[2023-04-26] MEDS ORDERED: MORPHINE SULFATE INJ 2 MG/ml SYRG IV PRN (21:00)
[2023-04-26] MEDS ORDERED: TEMAZEPAM 15 MG CAP PO PRN (21:00)
[2023-04-26 21:51] LABS: INR 1.32 (0.9-1.15); Partial Thromboplastin Time 24.7 SEC (24.5-34.5); Prothrombin Time 13.6 sec (9.3-11.8)
[2023-04-26] MEDS: methylPREDNISolone SOD SUCC 40 MG/ML VL IV SCH (22:00)
[2023-04-26] MEDS: ACCU-CHEK COMFORT CURVE STRIP VI SCH (22:02)
[2023-04-26 22:10] VITALS: BP 136/64; PULSE 69; RESP 18; TEMP 98.4; O2SAT 97
[2023-04-26] MEDS: APIXABAN 5 MG TAB PO SCH (22:17)
[2023-04-26] MEDS: ATORVASTATIN 20 MG TAB PO SCH (22:17)
[2023-04-26] MEDS: InsuLIN REG 1unit/0.01ml Soln (100units/ml) SC SCH (22:18)
[2023-04-26 22:47] VITALS: RESP 20; O2SAT 93
[2023-04-27] VITALS (10 sets, daily range): BP systolic 139–158; BP diastolic 66–85; PULSE 69–70; RESP 17–22; TEMP 97.1–98.6; O2SAT 95–100
[2023-04-27 05:53] LABS: Basophils # (auto) 0 10 ^3/uL (0-0.2); Basophils % (auto) 0.1 % (0.0-2.0); Eosinophils # (auto) 0 10 ^3/uL (0-0.8); Hematocrit 36.9 % (41.0-53.0); Hemoglobin 12.2 g/dL (13.5-17.5); Lymphocytes # (auto) 0.7 10 ^3/uL (0.4-5.4); Lymphocytes % (auto) 10.5 % (10.0-50.0); Mean Corpuscular Hemoglobin 32.4 pg (28.0-32.0); Mean Corpuscular Hgb Conc. 33.1 g/dL (32.0-36.0); Mean Corpuscular Volume 97.8 fL (80.0-100.0); Monocytes # (auto) 0.1 10 ^3/uL (0-1.3); Neutrophils # (auto) 5.5 10 ^3/uL (1.6-8.6); Neutrophils % (auto) 87.4 % (37.0-80.0); Red Blood Cells 3.77 10^6/uL (4.5-5.90); Red Cell Distribution Width 14.6 % (11.8-14.3); White Blood Cell 6.2 10^3/uL (4.4-10.8)
[2023-04-27 06:09] LABS: Alanine Aminotransferase 12 U/L (7-40); Albumin 3.6 g/dL (3.2-4.8); Alkaline Phosphatase 201 U/L (46-116); Anion Gap 4 (5-15); Aspartate Aminotransferase 22 U/L (13-40); BUN/Creatinine Ratio 7.3 (10.0-20.0); Bilirubin, Total 0.8 mg/dL (0.2-1.0); Blood Urea Nitrogen 8 mg/dL (9-23); Calcium 8.6 mg/dL (8.7-10.4); Carbon Dioxide 28 mmol/L (20-30); Chloride 101 mmol/L (98-107); Potassium 3.8 mmol/L (3.5-5.1); Sodium 133 mmol/L (136-145); Total Protein 6.5 g/dL (5.7-8.2)
[2023-04-27 06:29] LABS: Glucose 234 mg/dL (74-106)
[2023-04-27] MEDS: ACCU-CHEK COMFORT CURVE STRIP VI SCH ×4 (06:34→21:41)
[2023-04-27] MEDS: InsuLIN REG 1unit/0.01ml Soln (100units/ml) SC SCH ×4 (06:34→21:41)
[2023-04-27] MEDS: FUROSEMIDE 40 MG TAB PO SCH ×2 (10:00→10:12)
[2023-04-27] MEDS: METOPROLOL SUCCINATE XL 50 MG TAB PO SCH (10:11)
[2023-04-27] MEDS: amLODIPine BESYLATE 5 MG TAB PO SCH (10:12)
[2023-04-27] MEDS: APIXABAN 5 MG TAB PO SCH ×2 (10:13→21:40)
[2023-04-27] MEDS: methylPREDNISolone SOD SUCC 40 MG/ML VL IV SCH ×2 (10:13→21:41)
[2023-04-27] MEDS: CLOPIDOGREL BISULFATE 75 MG TAB PO SCH (10:14)
[2023-04-27] MEDS ORDERED: cefTRIAXone 1GM/50ML D5W 50 ML IV ONE (11:45)
[2023-04-27] MEDS: TAMSULOSIN HYDROCHLORIDE 0.4 MG CAP PO SCH (18:05)
[2023-04-27] MEDS: ATORVASTATIN 20 MG TAB PO SCH (21:40)
[2023-04-27] MEDS: HYDROcodone-ACET 5/325MG TAB PO PRN (23:22)
[2023-04-28] VITALS (13 sets, daily range): BP systolic 125–156; BP diastolic 52–84; PULSE 69–77; RESP 17–28; TEMP 97.4–98.1; O2SAT 94–100
[2023-04-28] MEDS: IPRATROPIUM BROM 0.5 MG/2.5ML INH SOL NEB PRN ×2 (00:27→14:12)
[2023-04-28] MEDS: ALBUTEROL SULF 2.5 MG/0.5ML(0.5%) NEB SOLN NEB PRN ×2 (00:27→14:12)
[2023-04-28] MEDS: ACCU-CHEK COMFORT CURVE STRIP VI SCH ×4 (06:23→21:49)
[2023-04-28] MEDS: InsuLIN REG 1unit/0.01ml Soln (100units/ml) SC SCH ×4 (06:25→22:00)
[2023-04-28] MEDS: CLOPIDOGREL BISULFATE 75 MG TAB PO SCH (09:33)
[2023-04-28] MEDS: methylPREDNISolone SOD SUCC 40 MG/ML VL IV SCH ×2 (09:33→21:49)
[2023-04-28] MEDS: amLODIPine BESYLATE 5 MG TAB PO SCH (09:34)
[2023-04-28] MEDS: METOPROLOL SUCCINATE XL 50 MG TAB PO SCH (09:34)
[2023-04-28] MEDS: APIXABAN 5 MG TAB PO SCH ×2 (09:36→21:49)
[2023-04-28] MEDS: FUROSEMIDE 40 MG TAB PO SCH (09:36)
[2023-04-28] MEDS: cefTRIAXone 1GM/50ML D5W 50 ML IV SCH (09:39)
[2023-04-28] MEDS: HYDROcodone-ACET 5/325MG TAB PO PRN ×2 (13:49→21:52)
[2023-04-28] MEDS: TAMSULOSIN HYDROCHLORIDE 0.4 MG CAP PO SCH (17:30)
[2023-04-28] MEDS: ATORVASTATIN 20 MG TAB PO SCH (21:49)
[2023-04-29] VITALS (10 sets, daily range): BP systolic 132–161; BP diastolic 60–93; PULSE 69–73; RESP 17–20; TEMP 98–98.7; O2SAT 95–100
[2023-04-29] MEDS: HYDROcodone-ACET 5/325MG TAB PO PRN ×3 (02:57→21:19)
[2023-04-29] MEDS: ACCU-CHEK COMFORT CURVE STRIP VI SCH ×4 (05:46→21:19)
[2023-04-29] MEDS: InsuLIN REG 1unit/0.01ml Soln (100units/ml) SC SCH ×4 (06:10→21:19)
[2023-04-29] MEDS: cefTRIAXone 1GM/50ML D5W 50 ML IV SCH (09:08)
[2023-04-29] MEDS: CLOPIDOGREL BISULFATE 75 MG TAB PO SCH (09:30)
[2023-04-29] MEDS: methylPREDNISolone SOD SUCC 40 MG/ML VL IV SCH ×2 (09:30→21:18)
[2023-04-29] MEDS: APIXABAN 5 MG TAB PO SCH ×2 (09:30→21:19)
[2023-04-29] MEDS: FUROSEMIDE 40 MG TAB PO SCH (09:31)
[2023-04-29] MEDS: METOPROLOL SUCCINATE XL 50 MG TAB PO SCH (09:31)
[2023-04-29] MEDS: amLODIPine BESYLATE 5 MG TAB PO SCH (09:31)
[2023-04-29] MEDS: TAMSULOSIN HYDROCHLORIDE 0.4 MG CAP PO SCH (17:32)
[2023-04-29] MEDS: ATORVASTATIN 20 MG TAB PO SCH (21:19)
[2023-04-30] VITALS (10 sets, daily range): BP systolic 120–161; BP diastolic 73–97; PULSE 65–74; RESP 16–20; TEMP 97.9–98.4; O2SAT 95–100
[2023-04-30] MEDS: HYDROcodone-ACET 5/325MG TAB PO PRN ×3 (01:37→22:38)
[2023-04-30] MEDS: ACCU-CHEK COMFORT CURVE STRIP VI SCH ×4 (05:50→22:39)
[2023-04-30] MEDS: InsuLIN REG 1unit/0.01ml Soln (100units/ml) SC SCH ×4 (05:54→22:44)
[2023-04-30] MEDS: cefTRIAXone 1GM/50ML D5W 50 ML IV SCH (09:09)
[2023-04-30] MEDS: APIXABAN 5 MG TAB PO SCH ×2 (09:42→22:38)
[2023-04-30] MEDS: FUROSEMIDE 40 MG TAB PO SCH (09:42)
[2023-04-30] MEDS: CLOPIDOGREL BISULFATE 75 MG TAB PO SCH (09:42)
[2023-04-30] MEDS: METOPROLOL SUCCINATE XL 50 MG TAB PO SCH (09:43)
[2023-04-30] MEDS: amLODIPine BESYLATE 5 MG TAB PO SCH (09:43)
[2023-04-30] MEDS: methylPREDNISolone SOD SUCC 40 MG/ML VL IV SCH ×2 (09:46→22:38)
[2023-04-30] MEDS ORDERED: AZIT500T66 PO (10:21)
[2023-04-30] MEDS ORDERED: METH4PAK PO (10:21)
[2023-04-30] MEDS: TAMSULOSIN HYDROCHLORIDE 0.4 MG CAP PO SCH (17:32)
[2023-04-30] MEDS ORDERED: cloNIDine HCL 0.1 MG TAB PO ONE (22:30)
[2023-04-30] MEDS: ATORVASTATIN 20 MG TAB PO SCH (22:38)
[2023-05-01 02:06] VITALS: BP 154/72; PULSE 69
[2023-05-01] MEDS: HYDROcodone-ACET 5/325MG TAB PO PRN (03:07)
[2023-05-01 05:00] VITALS: BP 165/87; PULSE 70; RESP 22; TEMP 98.4; O2SAT 98
[2023-05-01] MEDS: ACCU-CHEK COMFORT CURVE STRIP VI SCH ×2 (06:11→11:59)
[2023-05-01] MEDS: amLODIPine BESYLATE 5 MG TAB PO SCH (06:12)
[2023-05-01] MEDS: FUROSEMIDE 40 MG TAB PO SCH (06:13)
[2023-05-01] MEDS: METOPROLOL SUCCINATE XL 50 MG TAB PO SCH (06:13)
[2023-05-01] MEDS: InsuLIN REG 1unit/0.01ml Soln (100units/ml) SC SCH ×2 (06:17→12:00)
[2023-05-01 08:00] VITALS: PULSE 69
[2023-05-01 08:23] VITALS: PULSE 70; RESP 17; O2SAT 97
[2023-05-01 09:00] VITALS: BP 158/91; PULSE 71; RESP 17; TEMP 97.9; O2SAT 95
[2023-05-01] MEDS: cefTRIAXone 1GM/50ML D5W 50 ML IV SCH (09:27)
[2023-05-01] MEDS: APIXABAN 5 MG TAB PO SCH (09:31)
[2023-05-01] MEDS: CLOPIDOGREL BISULFATE 75 MG TAB PO SCH (09:31)
[2023-05-01] MEDS: methylPREDNISolone SOD SUCC 40 MG/ML VL IV SCH (09:31)
[2023-05-01 13:25] VITALS: BP 174/90; PULSE 69; TEMP 36.6
== END 2023-05-01 14:40 | disposition hospice, home (50) | DRG 177 ==
LOC: EDUNIT# 17:18 → ER 17:18 → EDBD 17:18 → TELE 21:02 → TELE-WESTW 22:45
PROVIDERS: ADMIT Nurse Practitioner; ATTEND Family Medicine
DX: J15.69 Pneumonia due to other Gram-negative bacteria (principal); J96.21 Acute and chronic respiratory failure with hypoxia; J44.1 Chronic obstructive pulmonary disease with (acute) exacerbation; N39.0 Urinary tract infection, site not specified; J44.0 Chronic obstructive pulmonary disease with (acute) lower respiratory infection; J15.9 Unspecified bacterial pneumonia; I50.9 Heart failure, unspecified; I11.0 Hypertensive heart disease with heart failure; E11.9 Type 2 diabetes mellitus without complications; I48.91 Unspecified atrial fibrillation; F17.210 Nicotine dependence, cigarettes, uncomplicated; Z91.199 Patient's noncompliance with other medical treatment and regimen due to unspecified reason; Z99.81 Dependence on supplemental oxygen; Z95.0 Presence of cardiac pacemaker; Z51.5 Encounter for palliative care
CPT/HCPCS: 36415; 71045; 80053; 81001; 82962; 83605; 83880; 84484; 85025; 85379; 85610; 85730; 87040; 93005; 93306; 94640; 96365; 96375; G0378; J0696; J1815

== ENCOUNTER 2023-05-16 08:13 | Inpatient (IN) | payer MEDICAID ==
[~2023-05-16] VITALS: Ht 188 cm; Wt 126.0 kg
[~2023-05-16 08:13] MED LIST changes: +AZIT500T66 PO; +METH4PAK PO
[2023-05-16] MEDS ORDERED: MORPHINE SULFATE 4 MG/ML SYR/VIAL IV ONE (08:15)
[2023-05-16] MEDS ORDERED: ONDANSETRON HCL 4 MG/2 ML VIAL IV ONE ×2 (08:15→11:30)
[2023-05-16] MEDS ORDERED: SILVER SULFADIAZINE 1 % TOPICAL CREAM 50GM TOP ONE (08:45)
[2023-05-16 08:59] VITALS: PULSE 64; RESP 16; O2SAT 95
[2023-05-16 09:17] LABS: Basophils # (auto) 0 10 ^3/uL (0-0.2); Basophils % (auto) 0.2 % (0.0-2.0); Eosinophils # (auto) 0 10 ^3/uL (0-0.8); Eosinophils % (auto) 0.1 % (0.0-7.0); Hematocrit 41.3 % (41.0-53.0); Lymphocytes # (auto) 0.8 10 ^3/uL (0.4-5.4); Lymphocytes % (auto) 6.3 % (10.0-50.0); Mean Corpuscular Hemoglobin 30.8 pg (28.0-32.0); Mean Corpuscular Hgb Conc. 31.4 g/dL (32.0-36.0); Mean Corpuscular Volume 98.2 fL (80.0-100.0); Monocytes # (auto) 0.8 10 ^3/uL (0-1.3); Monocytes % (auto) 6.7 % (0.0-12.0); Neutrophils # (auto) 10.2 10 ^3/uL (1.6-8.6); Neutrophils % (auto) 86.7 % (37.0-80.0); Red Blood Cells 4.21 10^6/uL (4.5-5.90); Red Cell Distribution Width 14.4 % (11.8-14.3); White Blood Cell 11.8 10^3/uL (4.4-10.8)
[2023-05-16 09:41] LABS: Alanine Aminotransferase 22 U/L (7-40); Alkaline Phosphatase 187 U/L (46-116); Anion Gap 7 (5-15); Aspartate Aminotransferase 37 U/L (13-40); BUN/Creatinine Ratio 13.1 (10.0-20.0); Blood Urea Nitrogen 13 mg/dL (9-23); Calcium 8.5 mg/dL (8.5-10.1); Carbon Dioxide 28 mmol/L (20-30); Chloride 101 mmol/L (98-107); Glucose 156 mg/dL (74-106); Lactic Acid w/Reflex 2.5 mmol/L (0.4-2.0); Potassium 3.7 mmol/L (3.5-5.1); Sodium 136 mmol/L (136-145)
[2023-05-16 09:42] LABS: Albumin 3.5 g/dL (3.2-4.8); Bilirubin, Total 1.8 mg/dL (0.2-1.0); Total Protein 6.1 g/dL (5.7-8.2)
[2023-05-16 10:25] LABS: Urine Bacteria NONE SEEN /hpf (None Seen); Urine Blood Negative /uL (Negative); Urine Clarity Clear (Clear); Urine Color Yellow (Yellow); Urine Protein, UAD TRACE (Negative); Urine Specific Gravity 1.019 (1.001-1.035); Urine WBC 22 /hpf (0 - 3)
[2023-05-16] MEDS ORDERED: cefTRIAXone 1GM/50ML D5W 50 ML IV ONE ×2 (11:00→11:12)
[2023-05-16 11:04] LABS: Magnesium 1.9 mg/dL (1.6-2.6)
[2023-05-16] MEDS ORDERED: HYDROmorphone HCL 2 MG/ML VL/or syr IV ONE (11:30)
[2023-05-16] MEDS ORDERED: HEPARIN DRIP/D5W 100UNITS/ML 250 ML IV SCH ×2 (11:45→21:00)
[2023-05-16] MEDS ORDERED: ONDANSETRON HCL 4 MG/2 ML VIAL ONE (11:49)
[2023-05-16] MEDS ORDERED: HYDROmorphone HCL 2 MG/ML VL/or syr ONE (11:49)
[2023-05-16 12:07] LABS: INR 1.23 (0.9-1.15); Partial Thromboplastin Time 29.9 SEC (24.5-34.5); Prothrombin Time 12.7 sec (9.3-11.8)
[2023-05-16] MEDS ORDERED: MORPHINE SULFATE INJ 2 MG/ml SYRG IV PRN (12:15)
[2023-05-16] MEDS ORDERED: CEFEPIME 1GM/ 50ML 50 ML IV ONE (12:15)
[2023-05-16] MEDS ORDERED: DEXTROSE (50%) 50ML SYRG IV PRN (12:15)
[2023-05-16] MEDS ORDERED: NITROGLYCERIN 0.4 MG SL TAB SL PRN (12:15)
[2023-05-16] MEDS ORDERED: ACETAMINOPHEN 325 MG TAB PO PRN (12:15)
[2023-05-16] MEDS ORDERED: VANCOMYCIN PER PHARMACY 0 MG IV SCH (12:15)
[2023-05-16] MEDS ORDERED: ONDANSETRON HCL 4 MG/2 ML VIAL IV PRN (12:15)
[2023-05-16] MEDS ORDERED: HEPARIN DRIP/D5W 100UNITS/ML 250 ML IV ONE (12:21)
[2023-05-16] MEDS ORDERED: DIPHENOXYLATE W/ATROPINE 2.5 MG TAB PO PRN (13:00)
[2023-05-16] MEDS ORDERED: SODIUM CHLORIDE 0.9% 500 ML IV ONE (13:30)
[2023-05-16] MEDS ORDERED: SODIUM CHLORIDE 0.9% 1,000 ML IV ONE (13:30)
[2023-05-16 13:48] LABS: Triglycerides 80 mg/dL (< 150)
[2023-05-16 13:49] LABS: LDL Cholesterol 44 mg/dL (< 100)
[2023-05-16 13:51] LABS: Cholesterol 100 mg/dL (< 200); HDL Cholesterol 37 mg/dL (40-59)
[2023-05-16] MEDS: VANCOMYCIN 1GM/250ML 250 ML IV SCH (15:11)
[2023-05-16] MEDS: InsuLIN REG 1unit/0.01ml Soln (100units/ml) SC SCH (17:00)
[2023-05-16] MEDS: ACCU-CHEK COMFORT CURVE STRIP VI SCH (17:14)
[2023-05-16 19:32] LABS: INR 1.23 (0.9-1.15); Partial Thromboplastin Time 33.8 SEC (24.5-34.5); Prothrombin Time 12.7 sec (9.3-11.8)
[2023-05-16] MEDS ORDERED: CEFEPIME 1GM/ 50ML 50 ML IV SCH (20:00)
[2023-05-16 20:15] VITALS: PULSE 69; RESP 17; O2SAT 96
[2023-05-16] MEDS: TAMSULOSIN HYDROCHLORIDE 0.4 MG CAP PO SCH (20:30)
[2023-05-16] MEDS ORDERED: HEPARIN SODIUM (PORCINE) 5000 UNITS/ML 1ML VIAL IV ONE (21:15)
[2023-05-16 23:30] VITALS: BP 116/67; PULSE 69; RESP 19; TEMP 98.5; O2SAT 97
[2023-05-16 23:31] VITALS: PULSE 69; RESP 18; O2SAT 96
[2023-05-17] VITALS (14 sets, daily range): BP systolic 98–173; BP diastolic 51–104; PULSE 68–82; RESP 15–22; TEMP 97.8–98.8; O2SAT 93–100
[2023-05-17] MEDS: PRAVASTATIN SODIUM 20 MG TAB PO SCH ×2 (00:33→21:18)
[2023-05-17] MEDS: buPROPion HCL 75 MG TAB PO SCH ×3 (00:33→21:21)
[2023-05-17] MEDS: DOCUSATE SOD 100 MG CAP PO SCH ×3 (00:34→21:21)
[2023-05-17] MEDS: ACCU-CHEK COMFORT CURVE STRIP VI SCH ×5 (00:34→21:24)
[2023-05-17] MEDS: METOPROLOL TARTRATE 50 MG TAB PO SCH ×3 (00:34→21:21)
[2023-05-17] MEDS: SILVER SULFADIAZINE 1 % TOPICAL CREAM 50GM TOP SCH ×3 (00:35→21:31)
[2023-05-17] MEDS: VANCOMYCIN 1GM/250ML 250 ML IV SCH ×2 (00:38→17:47)
[2023-05-17] MEDS: InsuLIN REG 1unit/0.01ml Soln (100units/ml) SC SCH ×5 (00:49→21:17)
[2023-05-17 04:11] LABS: INR 1.22 (0.9-1.15); Partial Thromboplastin Time 38.9 SEC (24.5-34.5); Prothrombin Time 12.6 sec (9.3-11.8)
[2023-05-17] MEDS: HEPARIN DRIP/D5W 100UNITS/ML 250 ML IV SCH ×2 (04:43→09:34)
[2023-05-17] MEDS ORDERED: HYDROcodone-ACET 5/325MG TAB PO PRN ×2 (05:30→18:30)
[2023-05-17 06:48] LABS: Alanine Aminotransferase 22 U/L (7-40); Albumin 3.4 g/dL (3.2-4.8); Alkaline Phosphatase 170 U/L (46-116); Anion Gap 6 (5-15); Aspartate Aminotransferase 78 U/L (13-40); BUN/Creatinine Ratio 7.4 (10.0-20.0); Blood Urea Nitrogen 7 mg/dL (9-23); Calcium 8.2 mg/dL (8.7-10.4); Carbon Dioxide 25 mmol/L (20-30); Chloride 103 mmol/L (98-107); Glucose 127 mg/dL (74-106); Potassium 4.3 mmol/L (3.5-5.1); Sodium 134 mmol/L (136-145)
[2023-05-17 06:49] LABS: Bilirubin, Total 1.4 mg/dL (0.2-1.0); Total Protein 6.3 g/dL (5.7-8.2)
[2023-05-17 07:10] LABS: Basophils # (auto) 0 10 ^3/uL (0-0.2); Basophils % (auto) 0.2 % (0.0-2.0); Eosinophils # (auto) 0 10 ^3/uL (0-0.8); Eosinophils % (auto) 0.4 % (0.0-7.0); Hematocrit 42.8 % (41.0-53.0); Hemoglobin 13.9 g/dL (13.5-17.5); Lymphocytes # (auto) 1.2 10 ^3/uL (0.4-5.4); Lymphocytes % (auto) 12.9 % (10.0-50.0); Mean Corpuscular Hemoglobin 32.5 pg (28.0-32.0); Mean Corpuscular Hgb Conc. 32.4 g/dL (32.0-36.0); Mean Corpuscular Volume 100.4 fL (80.0-100.0); Monocytes % (auto) 10.3 % (0.0-12.0); Neutrophils # (auto) 7.3 10 ^3/uL (1.6-8.6); Neutrophils % (auto) 76.2 % (37.0-80.0); Nucleated Red Blood Cells % 0.1 %; Red Blood Cells 4.26 10^6/uL (4.5-5.90); Red Cell Distribution Width 14.7 % (11.8-14.3); White Blood Cell 9.6 10^3/uL (4.4-10.8)
[2023-05-17] MEDS: FENOFIBRATE 54 MG PO SCH (08:57)
[2023-05-17] MEDS: ARIPIPRAZOLE 30 MG PO SCH (08:57)
[2023-05-17] MEDS ORDERED: cefTRIAXone 1GM/50ML D5W 50 ML IV SCH (09:00)
[2023-05-17] MEDS: amLODIPine BESYLATE 5 MG TAB PO SCH (09:10)
[2023-05-17] MEDS: CLOPIDOGREL BISULFATE 75 MG TAB PO SCH (09:10)
[2023-05-17] MEDS: TRIAMTERENE/HCTZ 37.5/25 MG CAP/TAB PO SCH (09:10)
[2023-05-17] MEDS: PANTOPRAZOLE 40 MG TAB PO SCH (09:11)
[2023-05-17] MEDS ORDERED: TRIAMTERENE PO SCH (10:00)
[2023-05-17] MEDS ORDERED: PATIENTS OWN MEDICATION (Ferrous Gluconate (Iron) 65 MG) PO SCH (10:00)
[2023-05-17] MEDS ORDERED: buPROPion HCL 100 MG TAB PO SCH (10:00)
[2023-05-17] MEDS ORDERED: PATIENTS OWN MEDICATION (Omeprazole (Gnp Omeprazole) 40 MG) PO SCH (10:00)
[2023-05-17] MEDS ORDERED: HYDROCHLOROTHIAZ PO SCH (10:00)
[2023-05-17] MEDS ORDERED: PATIENTS OWN MEDICATION (Simvastatin 20 MG) PO SCH (10:00)
[2023-05-17] MEDS ORDERED: FERROUS SULFATE 325mg EC TAB PO SCH (10:00)
[2023-05-17] MEDS ORDERED: CEFEPIME 1GM/ 50ML 50 ML IV SCH (11:00)
[2023-05-17] MEDS ORDERED: SODIUM CHLORIDE 0.9% 1,000 ML IV SCH (11:00)
[2023-05-17 11:36] LABS: Prothrombin Time 14.2 sec (9.3-11.8)
[2023-05-17 11:37] LABS: INR 1.38 (0.9-1.15)
[2023-05-17 11:38] LABS: Partial Thromboplastin Time > 139.0 SEC (24.5-34.5)
[2023-05-17 12:35] LABS: Magnesium 1.9 mg/dL (1.6-2.6)
[2023-05-17] MEDS: SODIUM CHLORIDE 0.9% 1,000 ML IV SCH ×3 (12:43→21:23)
[2023-05-17] MEDS: MORPHINE SULFATE INJ 2 MG/ml SYRG IV PRN ×2 (12:44→17:43)
[2023-05-17] MEDS ORDERED: cefTRIAXone 1GM/50ML D5W 50 ML IV ONE (13:00)
[2023-05-17] MEDS ORDERED: TETANUS IMMUNE GLOBULIN 250 UNIT/ML SYRG IM ONE (17:45)
[2023-05-17] MEDS ORDERED: TETANUS-DIPTH-ACEL PERTUSSIS 0.5ML SYR Tdap IM ONE (17:45)
[2023-05-17] MEDS: TAMSULOSIN HYDROCHLORIDE 0.4 MG CAP PO SCH (18:00)
[2023-05-17] MEDS ORDERED: ACETAMINOPHEN 325 MG TAB PO PRN (18:30)
[2023-05-17] MEDS ORDERED: SODIUM CHLORIDE 0.9% 1,000 ML IV ONE (19:15)
[2023-05-17] MEDS: CEFEPIME 1GM/ 50ML 50 ML IV SCH (21:22)
[2023-05-17] MEDS ORDERED: ENOXAPARIN SOD 100 MG/1 ML SYRINGE SC SCH (22:00)
[2023-05-18] VITALS (24 sets, daily range): BP systolic 102–118; BP diastolic 53–70; PULSE 69; RESP 10–22; TEMP 97.7–98.8; O2SAT 89–100
[2023-05-18] MEDS: SODIUM CHLORIDE 0.9% 1,000 ML IV SCH ×4 (00:15→13:33)
[2023-05-18] MEDS: VANCOMYCIN 1GM/250ML 250 ML IV SCH (04:30)
[2023-05-18] MEDS: MORPHINE SULFATE INJ 2 MG/ml SYRG IV PRN ×3 (04:56→15:44)
[2023-05-18 05:19] LABS: Basophils # (auto) 0 10 ^3/uL (0-0.2); Basophils % (auto) 0.2 % (0.0-2.0); Eosinophils # (auto) 0 10 ^3/uL (0-0.8); Eosinophils % (auto) 0.4 % (0.0-7.0); Hematocrit 34.6 % (41.0-53.0); Hemoglobin 11.3 g/dL (13.5-17.5); Lymphocytes # (auto) 1.4 10 ^3/uL (0.4-5.4); Mean Corpuscular Hemoglobin 31.6 pg (28.0-32.0); Mean Corpuscular Hgb Conc. 32.7 g/dL (32.0-36.0); Mean Corpuscular Volume 96.6 fL (80.0-100.0); Monocytes # (auto) 0.8 10 ^3/uL (0-1.3); Monocytes % (auto) 10.5 % (0.0-12.0); Neutrophils # (auto) 5.5 10 ^3/uL (1.6-8.6); Neutrophils % (auto) 70.9 % (37.0-80.0); Red Blood Cells 3.59 10^6/uL (4.5-5.90); White Blood Cell 7.7 10^3/uL (4.4-10.8)
[2023-05-18 05:44] LABS: Alanine Aminotransferase 17 U/L (7-40); Albumin 2.9 g/dL (3.2-4.8); Alkaline Phosphatase 133 U/L (46-116); Anion Gap 5 (5-15); Aspartate Aminotransferase 46 U/L (13-40); BUN/Creatinine Ratio 9.8 (10.0-20.0); Blood Urea Nitrogen 9 mg/dL (9-23); Calcium 7.6 mg/dL (8.7-10.4); Carbon Dioxide 28 mmol/L (20-30); Chloride 102 mmol/L (98-107); Creatine Kinase IFCC 457 U/L (46-171); Glucose 113 mg/dL (74-106); Magnesium 1.8 mg/dL (1.6-2.6); Sodium 135 mmol/L (136-145); Total Protein 5.3 g/dL (5.7-8.2)
[2023-05-18] MEDS: CEFEPIME 1GM/ 50ML 50 ML IV SCH ×3 (06:01→21:58)
[2023-05-18] MEDS: ACCU-CHEK COMFORT CURVE STRIP VI SCH ×4 (06:13→22:20)
[2023-05-18] MEDS: InsuLIN REG 1unit/0.01ml Soln (100units/ml) SC SCH ×4 (06:15→22:00)
[2023-05-18] MEDS: FENOFIBRATE 54 MG PO SCH (08:49)
[2023-05-18] MEDS: ARIPIPRAZOLE 30 MG PO SCH (08:49)
[2023-05-18] MEDS ORDERED: cefTRIAXone 1GM/50ML D5W 50 ML IV SCH (09:00)
[2023-05-18] MEDS: buPROPion HCL 75 MG TAB PO SCH ×2 (09:24→21:58)
[2023-05-18] MEDS: CLOPIDOGREL BISULFATE 75 MG TAB PO SCH (09:24)
[2023-05-18] MEDS: TRIAMTERENE/HCTZ 37.5/25 MG CAP/TAB PO SCH (09:24)
[2023-05-18] MEDS: METOPROLOL TARTRATE 50 MG TAB PO SCH ×2 (09:25→21:59)
[2023-05-18] MEDS: PANTOPRAZOLE 40 MG TAB PO SCH (09:25)
[2023-05-18] MEDS: SILVER SULFADIAZINE 1 % TOPICAL CREAM 50GM TOP SCH ×2 (09:25→22:00)
[2023-05-18] MEDS: DOCUSATE SOD 100 MG CAP PO SCH ×2 (09:25→22:00)
[2023-05-18] MEDS: amLODIPine BESYLATE 5 MG TAB PO SCH (09:25)
[2023-05-18] MEDS ORDERED: IBUPROFEN 400 MG TAB PO PRN (10:15)
[2023-05-18] MEDS ORDERED: ZINC SULFATE 220mg CAP or TAB PO ONE (12:30)
[2023-05-18] MEDS ORDERED: ASCORBIC ACID 500 MG TAB PO ONE (12:30)
[2023-05-18] MEDS: TAMSULOSIN HYDROCHLORIDE 0.4 MG CAP PO SCH (17:25)
[2023-05-18] MEDS ORDERED: ALBUTEROL SULF 2.5 MG/0.5ML(0.5%) NEB SOLN NEB PRN (18:00)
[2023-05-18] MEDS ORDERED: FUROSEMIDE 20 MG/2 ML VIAL IV ONE (18:00)
[2023-05-18] MEDS ORDERED: IPRATROPIUM BROM 0.5 MG/2.5ML INH SOL NEB PRN (18:00)
[2023-05-18] MEDS: PRAVASTATIN SODIUM 20 MG TAB PO SCH (21:58)
[2023-05-19] VITALS (14 sets, daily range): BP systolic 93–123; BP diastolic 52–64; PULSE 69–70; RESP 17–34; TEMP 97.1–98.5; O2SAT 94–100
[2023-05-19] MEDS: MORPHINE SULFATE INJ 2 MG/ml SYRG IV PRN ×4 (02:44→19:56)
[2023-05-19] MEDS: CEFEPIME 1GM/ 50ML 50 ML IV SCH (05:08)
[2023-05-19 05:26] LABS: Anion Gap 4 (5-15); Basophils # (auto) 0 10 ^3/uL (0-0.2); Basophils % (auto) 0.4 % (0.0-2.0); Calcium 7.5 mg/dL (8.7-10.4); Carbon Dioxide 27 mmol/L (20-30); Chloride 103 mmol/L (98-107); Eosinophils # (auto) 0.1 10 ^3/uL (0-0.8); Eosinophils % (auto) 0.8 % (0.0-7.0); Hematocrit 33.3 % (41.0-53.0); Hemoglobin 10.9 g/dL (13.5-17.5); Lymphocytes # (auto) 1.6 10 ^3/uL (0.4-5.4); Lymphocytes % (auto) 20.9 % (10.0-50.0); Mean Corpuscular Hemoglobin 31.8 pg (28.0-32.0); Mean Corpuscular Hgb Conc. 32.8 g/dL (32.0-36.0); Mean Corpuscular Volume 97.2 fL (80.0-100.0); Monocytes % (auto) 12.6 % (0.0-12.0); Neutrophils % (auto) 65.3 % (37.0-80.0); Nucleated Red Blood Cells % 0.1 %; Potassium 3.8 mmol/L (3.5-5.1); Red Blood Cells 3.43 10^6/uL (4.5-5.90); Red Cell Distribution Width 14.3 % (11.8-14.3); Sodium 134 mmol/L (136-145); White Blood Cell 7.6 10^3/uL (4.4-10.8)
[2023-05-19 05:32] LABS: BUN/Creatinine Ratio 8.6 (10.0-20.0); Blood Urea Nitrogen 8 mg/dL (9-23); Glucose 115 mg/dL (74-106)
[2023-05-19 05:33] LABS: Magnesium 1.8 mg/dL (1.6-2.6)
[2023-05-19] MEDS: InsuLIN REG 1unit/0.01ml Soln (100units/ml) SC SCH ×4 (05:46→22:00)
[2023-05-19] MEDS: ACCU-CHEK COMFORT CURVE STRIP VI SCH ×4 (05:47→21:57)
[2023-05-19] MEDS: FENOFIBRATE 54 MG PO SCH (10:00)
[2023-05-19] MEDS: amLODIPine BESYLATE 5 MG TAB PO SCH (10:00)
[2023-05-19] MEDS: METOPROLOL TARTRATE 50 MG TAB PO SCH ×2 (10:00→21:56)
[2023-05-19] MEDS: ARIPIPRAZOLE 30 MG PO SCH (10:00)
[2023-05-19] MEDS: TRIAMTERENE/HCTZ 37.5/25 MG CAP/TAB PO SCH (10:42)
[2023-05-19] MEDS: CLOPIDOGREL BISULFATE 75 MG TAB PO SCH (10:43)
[2023-05-19] MEDS: buPROPion HCL 75 MG TAB PO SCH ×2 (10:43→21:56)
[2023-05-19] MEDS: PANTOPRAZOLE 40 MG TAB PO SCH (10:43)
[2023-05-19] MEDS: DOCUSATE SOD 100 MG CAP PO SCH ×2 (10:44→21:56)
[2023-05-19] MEDS: ZINC SULFATE 220mg CAP or TAB PO SCH (10:44)
[2023-05-19] MEDS: ASCORBIC ACID 500 MG TAB PO SCH (10:45)
[2023-05-19] MEDS ORDERED: cefTRIAXone 1GM/50ML D5W 50 ML IV ONE (11:45)
[2023-05-19] MEDS ORDERED: GABAPENTIN 100 MG CAP PO ONE (11:45)
[2023-05-19] MEDS: SILVER SULFADIAZINE 1 % TOPICAL CREAM 50GM TOP SCH ×2 (15:20→21:57)
[2023-05-19] MEDS: TAMSULOSIN HYDROCHLORIDE 0.4 MG CAP PO SCH (20:26)
[2023-05-19] MEDS: GABAPENTIN 100 MG CAP PO SCH (21:56)
[2023-05-19] MEDS: PRAVASTATIN SODIUM 20 MG TAB PO SCH (22:05)
[2023-05-20] VITALS (28 sets, daily range): BP systolic 103–135; BP diastolic 52–73; PULSE 69–91; RESP 12–27; TEMP 98–99.1; O2SAT 92–100
[2023-05-20] MEDS: MORPHINE SULFATE INJ 2 MG/ml SYRG IV PRN ×5 (00:28→20:02)
[2023-05-20 05:12] LABS: Basophils # (auto) 0 10 ^3/uL (0-0.2); Basophils % (auto) 0.3 % (0.0-2.0); Eosinophils # (auto) 0.1 10 ^3/uL (0-0.8); Eosinophils % (auto) 0.8 % (0.0-7.0); Hematocrit 34.9 % (41.0-53.0); Hemoglobin 11.3 g/dL (13.5-17.5); Lymphocytes # (auto) 1.7 10 ^3/uL (0.4-5.4); Lymphocytes % (auto) 23.7 % (10.0-50.0); Mean Corpuscular Hemoglobin 31.6 pg (28.0-32.0); Mean Corpuscular Hgb Conc. 32.4 g/dL (32.0-36.0); Mean Corpuscular Volume 97.6 fL (80.0-100.0); Monocytes # (auto) 1.1 10 ^3/uL (0-1.3); Neutrophils # (auto) 4.3 10 ^3/uL (1.6-8.6); Neutrophils % (auto) 60.2 % (37.0-80.0); Red Blood Cells 3.57 10^6/uL (4.5-5.90); White Blood Cell 7.2 10^3/uL (4.4-10.8)
[2023-05-20 05:22] LABS: Chloride 101 mmol/L (98-107); Potassium 3.8 mmol/L (3.5-5.1); Sodium 135 mmol/L (136-145)
[2023-05-20 05:23] LABS: Anion Gap 6 (5-15); Calcium 7.6 mg/dL (8.7-10.4); Carbon Dioxide 28 mmol/L (20-30)
[2023-05-20 05:28] LABS: BUN/Creatinine Ratio 15.2 (10.0-20.0); Blood Urea Nitrogen 14 mg/dL (9-23); Glucose 96 mg/dL (74-106); Magnesium 1.7 mg/dL (1.6-2.6)
[2023-05-20 05:30] LABS: Creatine Kinase IFCC 169 U/L (46-171)
[2023-05-20] MEDS: InsuLIN REG 1unit/0.01ml Soln (100units/ml) SC SCH ×4 (06:14→21:44)
[2023-05-20] MEDS: ACCU-CHEK COMFORT CURVE STRIP VI SCH ×4 (06:14→21:44)
[2023-05-20] MEDS: FENOFIBRATE 54 MG PO SCH (09:58)
[2023-05-20] MEDS: ARIPIPRAZOLE 30 MG PO SCH (09:58)
[2023-05-20] MEDS: amLODIPine BESYLATE 5 MG TAB PO SCH (09:59)
[2023-05-20] MEDS: METOPROLOL TARTRATE 50 MG TAB PO SCH ×2 (10:00→21:42)
[2023-05-20] MEDS: cefTRIAXone 1GM/50ML D5W 50 ML IV SCH (10:01)
[2023-05-20] MEDS: PANTOPRAZOLE 40 MG TAB PO SCH (10:04)
[2023-05-20] MEDS: buPROPion HCL 75 MG TAB PO SCH ×2 (10:04→21:42)
[2023-05-20] MEDS: DOCUSATE SOD 100 MG CAP PO SCH ×2 (10:04→21:42)
[2023-05-20] MEDS: ASCORBIC ACID 500 MG TAB PO SCH (10:04)
[2023-05-20] MEDS: ZINC SULFATE 220mg CAP or TAB PO SCH (10:04)
[2023-05-20] MEDS: GABAPENTIN 100 MG CAP PO SCH ×2 (10:04→21:42)
[2023-05-20] MEDS: CLOPIDOGREL BISULFATE 75 MG TAB PO SCH (10:04)
[2023-05-20] MEDS: TRIAMTERENE/HCTZ 37.5/25 MG CAP/TAB PO SCH (10:05)
[2023-05-20] MEDS ORDERED: SILV1CRE82 TOP (10:06)
[2023-05-20] MEDS: SILVER SULFADIAZINE 1 % TOPICAL CREAM 50GM TOP SCH ×2 (10:08→21:44)
[2023-05-20] MEDS ORDERED: APIX5TAB PO (10:09)
[2023-05-20] MEDS ORDERED: OXYC-962 PO (10:09)
[2023-05-20] MEDS ORDERED: PANT40TA2 PO (10:11)
[2023-05-20] MEDS: ENOXAPARIN SOD 150 MG/1 ML SYRINGE SC SCH ×2 (10:22→21:41)
[2023-05-20] MEDS: TAMSULOSIN HYDROCHLORIDE 0.4 MG CAP PO SCH (17:43)
[2023-05-20] MEDS ORDERED: ALBUTEROL MEDNEB 2.5 mg/3ml NEB ONE (18:36)
[2023-05-20] MEDS ORDERED: ALBUTEROL MEDNEB 2.5 mg/3ml NEB NEB PRN (19:15)
[2023-05-20] MEDS: PRAVASTATIN SODIUM 20 MG TAB PO SCH (21:41)
[2023-05-21] VITALS (28 sets, daily range): BP systolic 114–132; BP diastolic 66–68; PULSE 69–70; RESP 14–27; TEMP 98.2–98.9; O2SAT 91–99
[2023-05-21] MEDS: MORPHINE SULFATE INJ 2 MG/ml SYRG IV PRN ×5 (00:06→20:32)
[2023-05-21] MEDS: ACCU-CHEK COMFORT CURVE STRIP VI SCH ×4 (07:00→21:54)
[2023-05-21] MEDS: InsuLIN REG 1unit/0.01ml Soln (100units/ml) SC SCH ×4 (07:00→21:54)
[2023-05-21] MEDS: ARIPIPRAZOLE 30 MG PO SCH (10:00)
[2023-05-21] MEDS: FENOFIBRATE 54 MG PO SCH (10:00)
[2023-05-21] MEDS: ENOXAPARIN SOD 150 MG/1 ML SYRINGE SC SCH ×2 (10:24→21:52)
[2023-05-21] MEDS: amLODIPine BESYLATE 5 MG TAB PO SCH (10:25)
[2023-05-21] MEDS: DOCUSATE SOD 100 MG CAP PO SCH ×2 (10:25→21:51)
[2023-05-21] MEDS: buPROPion HCL 75 MG TAB PO SCH ×2 (10:25→21:51)
[2023-05-21] MEDS: PANTOPRAZOLE 40 MG TAB PO SCH (10:26)
[2023-05-21] MEDS: GABAPENTIN 100 MG CAP PO SCH ×2 (10:26→21:51)
[2023-05-21] MEDS: ZINC SULFATE 220mg CAP or TAB PO SCH (10:26)
[2023-05-21] MEDS: CLOPIDOGREL BISULFATE 75 MG TAB PO SCH (10:26)
[2023-05-21] MEDS: METOPROLOL TARTRATE 50 MG TAB PO SCH ×2 (10:26→21:51)
[2023-05-21] MEDS: ASCORBIC ACID 500 MG TAB PO SCH (10:27)
[2023-05-21] MEDS: cefTRIAXone 1GM/50ML D5W 50 ML IV SCH (10:27)
[2023-05-21] MEDS: TRIAMTERENE/HCTZ 37.5/25 MG CAP/TAB PO SCH (10:28)
[2023-05-21 11:07] LABS: Alanine Aminotransferase 15 U/L (7-40); Albumin 3.2 g/dL (3.2-4.8); Alkaline Phosphatase 166 U/L (46-116); Anion Gap 5 (5-15); Aspartate Aminotransferase 26 U/L (13-40); BUN/Creatinine Ratio 10.3 (10.0-20.0); Bilirubin, Total 0.8 mg/dL (0.2-1.0); Blood Urea Nitrogen 10 mg/dL (9-23); Carbon Dioxide 27 mmol/L (20-30); Chloride 101 mmol/L (98-107); Glucose 108 mg/dL (74-106); Potassium 3.8 mmol/L (3.5-5.1); Sodium 133 mmol/L (136-145)
[2023-05-21 11:08] LABS: Total Protein 5.9 g/dL (5.7-8.2)
[2023-05-21] MEDS: SILVER SULFADIAZINE 1 % TOPICAL CREAM 50GM TOP SCH (16:27)
[2023-05-21] MEDS: TAMSULOSIN HYDROCHLORIDE 0.4 MG CAP PO SCH (17:41)
[2023-05-21] MEDS: PRAVASTATIN SODIUM 20 MG TAB PO SCH (21:51)
[2023-05-22] VITALS (9 sets, daily range): BP systolic 96–143; BP diastolic 61–81; PULSE 68–70; RESP 18–20; TEMP 97.8–98.5; O2SAT 98–99
[2023-05-22] MEDS: MORPHINE SULFATE INJ 2 MG/ml SYRG IV PRN ×5 (01:09→21:46)
[2023-05-22] MEDS: SILVER SULFADIAZINE 1 % TOPICAL CREAM 50GM TOP SCH ×3 (05:19→21:51)
[2023-05-22] MEDS: ACCU-CHEK COMFORT CURVE STRIP VI SCH ×4 (06:03→21:49)
[2023-05-22] MEDS: InsuLIN REG 1unit/0.01ml Soln (100units/ml) SC SCH ×4 (06:03→21:51)
[2023-05-22 07:34] LABS: Basophils # (auto) 0 10 ^3/uL (0-0.2); Basophils % (auto) 0.6 % (0.0-2.0); Eosinophils # (auto) 0.1 10 ^3/uL (0-0.8); Eosinophils % (auto) 0.8 % (0.0-7.0); Hematocrit 33.4 % (41.0-53.0); Hemoglobin 10.9 g/dL (13.5-17.5); Lymphocytes # (auto) 1.6 10 ^3/uL (0.4-5.4); Lymphocytes % (auto) 21.7 % (10.0-50.0); Mean Corpuscular Hemoglobin 31.4 pg (28.0-32.0); Mean Corpuscular Hgb Conc. 32.7 g/dL (32.0-36.0); Monocytes # (auto) 0.9 10 ^3/uL (0-1.3); Monocytes % (auto) 12.8 % (0.0-12.0); Neutrophils # (auto) 4.6 10 ^3/uL (1.6-8.6); Neutrophils % (auto) 64.1 % (37.0-80.0); Nucleated Red Blood Cells % 0.2 %; Red Blood Cells 3.48 10^6/uL (4.5-5.90); Red Cell Distribution Width 13.9 % (11.8-14.3); White Blood Cell 7.2 10^3/uL (4.4-10.8)
[2023-05-22 07:42] LABS: Chloride 99 mmol/L (98-107); Potassium 4.2 mmol/L (3.5-5.1); Sodium 133 mmol/L (136-145)
[2023-05-22 07:44] LABS: Calcium 8.6 mg/dL (8.5-10.1)
[2023-05-22 07:48] LABS: Glucose 104 mg/dL (74-106)
[2023-05-22 07:49] LABS: BUN/Creatinine Ratio 13.6 (10.0-20.0); Blood Urea Nitrogen 12 mg/dL (9-23)
[2023-05-22 08:36] LABS: Anion Gap 6 (5-15); Carbon Dioxide 28 mmol/L (20-30)
[2023-05-22] MEDS: FENOFIBRATE 54 MG PO SCH (10:00)
[2023-05-22] MEDS: ARIPIPRAZOLE 30 MG PO SCH (10:00)
[2023-05-22] MEDS: cefTRIAXone 1GM/50ML D5W 50 ML IV SCH (10:50)
[2023-05-22] MEDS: GABAPENTIN 100 MG CAP PO SCH ×2 (10:51→21:42)
[2023-05-22] MEDS: amLODIPine BESYLATE 5 MG TAB PO SCH (10:55)
[2023-05-22] MEDS: CLOPIDOGREL BISULFATE 75 MG TAB PO SCH (10:55)
[2023-05-22] MEDS: PANTOPRAZOLE 40 MG TAB PO SCH (10:55)
[2023-05-22] MEDS: buPROPion HCL 75 MG TAB PO SCH ×2 (10:56→21:43)
[2023-05-22] MEDS: ASCORBIC ACID 500 MG TAB PO SCH (10:56)
[2023-05-22] MEDS: ENOXAPARIN SOD 150 MG/1 ML SYRINGE SC SCH ×2 (10:57→21:49)
[2023-05-22] MEDS: ZINC SULFATE 220mg CAP or TAB PO SCH (10:57)
[2023-05-22] MEDS: TRIAMTERENE/HCTZ 37.5/25 MG CAP/TAB PO SCH (10:58)
[2023-05-22] MEDS: DOCUSATE SOD 100 MG CAP PO SCH ×2 (10:58→21:42)
[2023-05-22] MEDS: METOPROLOL TARTRATE 50 MG TAB PO SCH ×2 (11:01→21:45)
[2023-05-22] MEDS: TAMSULOSIN HYDROCHLORIDE 0.4 MG CAP PO SCH (17:37)
[2023-05-22] MEDS: PRAVASTATIN SODIUM 20 MG TAB PO SCH (21:42)
[2023-05-23] MEDS: MORPHINE SULFATE INJ 2 MG/ml SYRG IV PRN ×3 (02:40→11:04)
[2023-05-23 05:00] VITALS: BP 118/65; PULSE 69; RESP 18; TEMP 98.1; O2SAT 96
[2023-05-23] MEDS: ACCU-CHEK COMFORT CURVE STRIP VI SCH ×2 (06:47→11:04)
[2023-05-23] MEDS: InsuLIN REG 1unit/0.01ml Soln (100units/ml) SC SCH ×2 (06:48→11:04)
[2023-05-23 08:00] VITALS: PULSE 68; PULSE 70; RESP 18; O2SAT 94
[2023-05-23 09:00] VITALS: BP 119/67; PULSE 67; RESP 18; TEMP 98.8; O2SAT 94
[2023-05-23 09:46] VITALS: BP 119/67; PULSE 69; RESP 18; TEMP 98.8; O2SAT 94
[2023-05-23] MEDS: ARIPIPRAZOLE 30 MG PO SCH (10:00)
[2023-05-23] MEDS: FENOFIBRATE 54 MG PO SCH (10:00)
[2023-05-23] MEDS: cefTRIAXone 1GM/50ML D5W 50 ML IV SCH (10:33)
[2023-05-23] MEDS: ZINC SULFATE 220mg CAP or TAB PO SCH (10:33)
[2023-05-23] MEDS: DOCUSATE SOD 100 MG CAP PO SCH (10:35)
[2023-05-23] MEDS: TRIAMTERENE/HCTZ 37.5/25 MG CAP/TAB PO SCH (10:35)
[2023-05-23] MEDS: ASCORBIC ACID 500 MG TAB PO SCH (10:35)
[2023-05-23] MEDS: GABAPENTIN 100 MG CAP PO SCH (10:35)
[2023-05-23] MEDS: CLOPIDOGREL BISULFATE 75 MG TAB PO SCH (10:36)
[2023-05-23] MEDS: amLODIPine BESYLATE 5 MG TAB PO SCH (10:36)
[2023-05-23] MEDS: PANTOPRAZOLE 40 MG TAB PO SCH (10:36)
[2023-05-23] MEDS: METOPROLOL TARTRATE 50 MG TAB PO SCH (10:37)
[2023-05-23] MEDS: ENOXAPARIN SOD 150 MG/1 ML SYRINGE SC SCH (10:37)
[2023-05-23] MEDS: buPROPion HCL 75 MG TAB PO SCH (10:37)
[2023-05-23] MEDS: SILVER SULFADIAZINE 1 % TOPICAL CREAM 50GM TOP SCH (10:38)
[2023-05-23 11:56] VITALS: BP 134/60; PULSE 69; RESP 18
== END 2023-05-23 12:30 | disposition hospice, home (50) | DRG 844 ==
LOC: ER 08:13 → EDBD 08:13 → TELE 12:40 → TELE-WESTW 23:20 → ICU CENTRL 05-17 15:00 → DOU IN ICU 05-17 15:19 → TELE-WESTW 05-21 17:27
PROVIDERS: ADMIT Internal Medicine Pulmonary Disease; ATTEND Internal Medicine Pulmonary Disease
PROC: 05HC33Z Insertion of Infusion Device into Left Basilic Vein, Percutaneous Approach (ICD-10-PCS; principal; 2023-05-17)
PROC: B54NZZA Ultrasonography of Left Upper Extremity Veins, Guidance (ICD-10-PCS; 2023-05-17)
DX: T21.24XA Burn of second degree of lower back, initial encounter (principal); I21.A1 Myocardial infarction type 2; T31.10 Burns involving 10-19% of body surface with 0% to 9% third degree burns; D69.6 Thrombocytopenia, unspecified; N30.00 Acute cystitis without hematuria; I11.0 Hypertensive heart disease with heart failure; K21.9 Gastro-esophageal reflux disease without esophagitis; F17.210 Nicotine dependence, cigarettes, uncomplicated; E11.9 Type 2 diabetes mellitus without complications; M62.82 Rhabdomyolysis; I48.91 Unspecified atrial fibrillation; E66.01 Morbid (severe) obesity due to excess calories; K46.9 Unspecified abdominal hernia without obstruction or gangrene; W07.XXXA Fall from chair, initial encounter; X08.8XXA Exposure to other specified smoke, fire and flames, initial encounter; Z79.01 Long term (current) use of anticoagulants; Z99.81 Dependence on supplemental oxygen; Z95.0 Presence of cardiac pacemaker; Z83.3 Family history of diabetes mellitus; Z82.49 Family history of ischemic heart disease and other diseases of the circulatory system; Z79.4 Long term (current) use of insulin; Y93.89 Activity, other specified; Y92.89 Other specified places as the place of occurrence of the external cause; Y99.8 Other external cause status; Z68.35 Body mass index [BMI] 35.0-35.9, adult; I50.32 Chronic diastolic (congestive) heart failure; J44.1 Chronic obstructive pulmonary disease with (acute) exacerbation
CPT/HCPCS: 36415; 71045; 73562; 74176; 76856; 80048; 80053; 80061; 81001; 82550; 82962; 83036; 83605; 83735; 83880; 84443; 84484; 85025; 85610; 85730; 87040; 87081; 87086; 87088; 87186; 90715; 93005; 94640; 97110; 97116; 97163; 97530; G0378; J0696; J1815; J2405

== ENCOUNTER 2023-07-31 08:19 | Inpatient (IN) | payer MEDICAID ==
[~2023-07-31] VITALS: Ht 188 cm; Wt 128.7 kg
[~2023-07-31 08:19] MED LIST changes: +APIX5TAB PO; +OXYC-962 PO; +PANT40TA2 PO; +SILV1CRE82 TOP
[2023-07-31] MEDS ORDERED: FUROSEMIDE 40 MG/4 ML VIAL IV ONE (08:45)
[2023-07-31 09:35] VITALS: PULSE 86; O2SAT 98
[2023-07-31] MEDS ORDERED: DEXTROSE (50%) 50ML SYRG IV PRN (11:15)
[2023-07-31] MEDS ORDERED: IPRATROPIUM BROM 0.5 MG/2.5ML INH SOL NEB PRN (11:15)
[2023-07-31] MEDS ORDERED: ALBUTEROL SULF 2.5 MG/0.5ML(0.5%) NEB SOLN NEB PRN (11:15)
[2023-07-31] MEDS: InsuLIN REG 1unit/0.01ml Soln (100units/ml) SC SCH ×3 (11:30→22:00)
[2023-07-31] MEDS: ACCU-CHEK COMFORT CURVE STRIP VI SCH ×3 (11:30→22:00)
[2023-07-31 12:33] LABS: Basophils # (auto) 0 10 ^3/uL (0-0.2); Basophils % (auto) 0.3 % (0.0-2.0); Eosinophils # (auto) 0 10 ^3/uL (0-0.8); Eosinophils % (auto) 0.4 % (0.0-7.0); Hematocrit 33.9 % (41.0-53.0); Hemoglobin 10.7 g/dL (13.5-17.5); Lymphocytes # (auto) 1.5 10 ^3/uL (0.4-5.4); Lymphocytes % (auto) 22.5 % (10.0-50.0); Mean Corpuscular Hemoglobin 30.6 pg (28.0-32.0); Mean Corpuscular Hgb Conc. 31.7 g/dL (32.0-36.0); Mean Corpuscular Volume 96.6 fL (80.0-100.0); Monocytes # (auto) 0.8 10 ^3/uL (0-1.3); Monocytes % (auto) 12.3 % (0.0-12.0); Neutrophils # (auto) 4.2 10 ^3/uL (1.6-8.6); Neutrophils % (auto) 64.5 % (37.0-80.0); Nucleated Red Blood Cells % 0.1 %; Red Blood Cells 3.51 10^6/uL (4.5-5.90); Red Cell Distribution Width 16.4 % (11.8-14.3); White Blood Cell 6.6 10^3/uL (4.4-10.8)
[2023-07-31 13:10] LABS: Alanine Aminotransferase 17 U/L (7-40); Albumin 3.4 g/dL (3.2-4.8); Alkaline Phosphatase 237 U/L (46-116); Anion Gap 9 (5-15); Aspartate Aminotransferase 54 U/L (13-40); BUN/Creatinine Ratio 10.2 (10.0-20.0); Blood Alcohol < 3.0 mg/dL (<10); Blood Urea Nitrogen 11 mg/dL (9-23); Calcium 8.4 mg/dL (8.5-10.1); Carbon Dioxide 24 mmol/L (20-30); Chloride 104 mmol/L (98-107); Glucose 95 mg/dL (74-106); Potassium 4.9 mmol/L (3.5-5.1); Sodium 137 mmol/L (136-145)
[2023-07-31 13:11] LABS: Bilirubin, Total 1.8 mg/dL (0.2-1.0); Total Protein 5.8 g/dL (5.7-8.2)
[2023-07-31 13:17] LABS: Urine Epithelial Cast None Seen /hpf (<5)
[2023-07-31 13:38] LABS: Urine Bacteria FEW /hpf (None Seen); Urine Blood Negative /uL (Negative); Urine Clarity Clear (Clear); Urine Color Colorless (Yellow); Urine Protein, UAD Negative (Negative); Urine Specific Gravity 1.006 (1.001-1.035); Urine Urobilinogen Normal (Negative); Urine WBC 2 /hpf (0 - 3)
[2023-07-31 16:14] VITALS: BP 125/78; PULSE 84; RESP 15; TEMP 98; O2SAT 97
[2023-07-31] MEDS: TAMSULOSIN HYDROCHLORIDE 0.4 MG CAP PO SCH (17:42)
[2023-07-31 21:56] VITALS: PULSE 70; RESP 20; O2SAT 97
[2023-07-31 22:00] VITALS: BP 139/69; PULSE 68; RESP 20; TEMP 97.6; O2SAT 96
[2023-07-31] MEDS: FUROSEMIDE 20 MG/2 ML VIAL IV SCH ×2 (22:00→23:07)
[2023-07-31 22:30] VITALS: O2SAT 96
[2023-07-31] MEDS: APIXABAN 5 MG TAB PO SCH (23:01)
[2023-07-31] MEDS: METOPROLOL TARTRATE 50 MG TAB PO SCH (23:04)
[2023-07-31 23:55] VITALS: BP 139/69; PULSE 68; RESP 20; TEMP 97.6; O2SAT 96
[2023-08-01] VITALS (9 sets, daily range): BP systolic 117–137; BP diastolic 52–69; PULSE 69–71; RESP 16–22; TEMP 97.5–98.4; O2SAT 96–100
[2023-08-01] MEDS: MORPHINE SULFATE INJ 2 MG/ml SYRG IV PRN ×3 (02:23→20:52)
[2023-08-01] MEDS: InsuLIN REG 1unit/0.01ml Soln (100units/ml) SC SCH ×4 (06:13→22:00)
[2023-08-01] MEDS: ACCU-CHEK COMFORT CURVE STRIP VI SCH ×4 (06:13→23:55)
[2023-08-01 07:50] LABS: Alanine Aminotransferase 12 U/L (7-40); Albumin 3.1 g/dL (3.2-4.8); Alkaline Phosphatase 209 U/L (46-116); Anion Gap 6 (5-15); Aspartate Aminotransferase 30 U/L (13-40); BUN/Creatinine Ratio 7.6 (10.0-20.0); Blood Urea Nitrogen 7 mg/dL (9-23); Calcium 8.4 mg/dL (8.5-10.1); Carbon Dioxide 25 mmol/L (20-30); Chloride 106 mmol/L (98-107); Glucose 87 mg/dL (74-106); LDL Cholesterol 31 mg/dL (< 100); Potassium 3.9 mmol/L (3.5-5.1); Sodium 137 mmol/L (136-145); Triglycerides 66 mg/dL (< 150)
[2023-08-01 07:51] LABS: Bilirubin, Total 1.5 mg/dL (0.2-1.0); Cholesterol 75 mg/dL (< 200); HDL Cholesterol 26 mg/dL (40-59); Total Protein 5.5 g/dL (5.7-8.2)
[2023-08-01 07:54] LABS: Hematocrit 32.1 % (41.0-53.0); Hemoglobin 10.3 g/dL (13.5-17.5); Mean Corpuscular Hemoglobin 30.9 pg (28.0-32.0); Mean Corpuscular Volume 96.5 fL (80.0-100.0); Red Blood Cells 3.32 10^6/uL (4.5-5.90); Red Cell Distribution Width 16.1 % (11.8-14.3)
[2023-08-01 07:57] LABS: Band Neutrophils % (manual) 0; Basophils % (manual) 0 (0.0-2.0); Blast Cells 0; Metamyelocytes % 0; Myelocytes % 0; Promyelocytes % 0; Reactive Lymphocytes 0
[2023-08-01 08:50] LABS: Eosinophils % (manual) 1 (0-7); Lymphocytes % (manual) 28 (10.0-50.0); Monocytes % (manual) 11 (0-12); Platelet Estimate Decreased
[2023-08-01] MEDS: METOPROLOL TARTRATE 50 MG TAB PO SCH ×2 (09:13→23:54)
[2023-08-01] MEDS: PRAVASTATIN SODIUM 20 MG TAB PO SCH (09:13)
[2023-08-01] MEDS: buPROPion HCL 100 MG TAB PO SCH (09:13)
[2023-08-01] MEDS: amLODIPine BESYLATE 5 MG TAB PO SCH (09:14)
[2023-08-01] MEDS: APIXABAN 5 MG TAB PO SCH ×2 (09:14→23:55)
[2023-08-01] MEDS: CLOPIDOGREL BISULFATE 75 MG TAB PO SCH (09:14)
[2023-08-01] MEDS: PANTOPRAZOLE 40 MG/10 ML VIAL INJ IV SCH (09:15)
[2023-08-01] MEDS: FUROSEMIDE 20 MG/2 ML VIAL IV SCH ×2 (09:15→23:55)
[2023-08-01] MEDS: ARIPIPRAZOLE 30 MG PO SCH (10:00)
[2023-08-01 11:31] LABS: INR 1.31 (0.9-1.15); Partial Thromboplastin Time 31.3 SEC (24.5-34.5); Prothrombin Time 13.5 sec (9.3-11.8)
[2023-08-01] MEDS: AMPICILLIN & SULBACTAM SODIUM 3 GM in SODIUM CHL 0.9% 100 ML IV SCH ×2 (17:15→23:55)
[2023-08-01] MEDS: TAMSULOSIN HYDROCHLORIDE 0.4 MG CAP PO SCH (18:30)
[2023-08-01] MEDS: DOXYCYCLINE 100 MG TAB/CAP PO SCH (23:55)
[2023-08-02] VITALS (9 sets, daily range): BP systolic 108–149; BP diastolic 64–84; PULSE 68–93; RESP 20–24; TEMP 97.8–98.5; O2SAT 96–100
[2023-08-02] MEDS: AMPICILLIN & SULBACTAM SODIUM 3 GM in SODIUM CHL 0.9% 100 ML IV SCH ×4 (03:45→21:20)
[2023-08-02] MEDS: InsuLIN REG 1unit/0.01ml Soln (100units/ml) SC SCH ×4 (05:12→21:36)
[2023-08-02] MEDS: ACCU-CHEK COMFORT CURVE STRIP VI SCH ×4 (05:12→21:36)
[2023-08-02] MEDS: MORPHINE SULFATE INJ 2 MG/ml SYRG IV PRN ×3 (06:01→21:28)
[2023-08-02 06:17] LABS: Basophils # (auto) 0 10 ^3/uL (0-0.2); Basophils % (auto) 0.2 % (0.0-2.0); Eosinophils # (auto) 0 10 ^3/uL (0-0.8); Eosinophils % (auto) 0.6 % (0.0-7.0); Hematocrit 31.6 % (41.0-53.0); Hemoglobin 10.2 g/dL (13.5-17.5); Lymphocytes # (auto) 1.4 10 ^3/uL (0.4-5.4); Lymphocytes % (auto) 28.3 % (10.0-50.0); Mean Corpuscular Hemoglobin 30.8 pg (28.0-32.0); Mean Corpuscular Hgb Conc. 32.3 g/dL (32.0-36.0); Mean Corpuscular Volume 95.3 fL (80.0-100.0); Monocytes # (auto) 0.9 10 ^3/uL (0-1.3); Monocytes % (auto) 17.4 % (0.0-12.0); Neutrophils # (auto) 2.7 10 ^3/uL (1.6-8.6); Neutrophils % (auto) 53.5 % (37.0-80.0); Red Blood Cells 3.32 10^6/uL (4.5-5.90); Red Cell Distribution Width 16.2 % (11.8-14.3); White Blood Cell 5.1 10^3/uL (4.4-10.8)
[2023-08-02 06:30] LABS: Anion Gap 8 (5-15); Carbon Dioxide 29 mmol/L (20-30); Chloride 103 mmol/L (98-107); Potassium 3.5 mmol/L (3.5-5.1); Sodium 140 mmol/L (136-145)
[2023-08-02 06:31] LABS: Calcium 8.6 mg/dL (8.5-10.1)
[2023-08-02 06:35] LABS: Glucose 107 mg/dL (74-106)
[2023-08-02 06:36] LABS: Blood Urea Nitrogen 9 mg/dL (9-23)
[2023-08-02] MEDS: PANTOPRAZOLE 40 MG/10 ML VIAL INJ IV SCH (09:37)
[2023-08-02] MEDS: SILVER SULFADIAZINE 1 % TOPICAL CREAM 50GM TOP SCH (09:38)
[2023-08-02] MEDS: FUROSEMIDE 20 MG/2 ML VIAL IV SCH ×2 (09:38→21:20)
[2023-08-02] MEDS: buPROPion HCL 100 MG TAB PO SCH (09:39)
[2023-08-02] MEDS: METOPROLOL TARTRATE 50 MG TAB PO SCH ×2 (09:39→21:20)
[2023-08-02] MEDS: amLODIPine BESYLATE 5 MG TAB PO SCH (09:40)
[2023-08-02] MEDS: DOXYCYCLINE 100 MG TAB/CAP PO SCH ×2 (09:40→21:19)
[2023-08-02] MEDS: APIXABAN 5 MG TAB PO SCH ×2 (09:40→21:19)
[2023-08-02] MEDS: ARIPIPRAZOLE 30 MG PO SCH (09:40)
[2023-08-02] MEDS: PRAVASTATIN SODIUM 20 MG TAB PO SCH (09:40)
[2023-08-02] MEDS: CLOPIDOGREL BISULFATE 75 MG TAB PO SCH (09:40)
[2023-08-02] MEDS ORDERED: POTASSIUM EFFERVESENT TAB 25 MEQ PO ONE (09:45)
[2023-08-02] MEDS ORDERED: MAGNESIUM OXIDE 400 MG TAB PO ONE (11:30)
[2023-08-02] MEDS: TAMSULOSIN HYDROCHLORIDE 0.4 MG CAP PO SCH (18:07)
[2023-08-03] VITALS (10 sets, daily range): BP systolic 114–132; BP diastolic 65–81; PULSE 68–70; RESP 20–24; TEMP 97.8–98.9; O2SAT 93–100
[2023-08-03] MEDS: AMPICILLIN & SULBACTAM SODIUM 3 GM in SODIUM CHL 0.9% 100 ML IV SCH ×4 (03:36→22:09)
[2023-08-03] MEDS: InsuLIN REG 1unit/0.01ml Soln (100units/ml) SC SCH ×4 (06:24→22:22)
[2023-08-03] MEDS: ACCU-CHEK COMFORT CURVE STRIP VI SCH ×4 (06:24→22:09)
[2023-08-03 09:06] LABS: Basophils # (auto) 0 10 ^3/uL (0-0.2); Basophils % (auto) 0.5 % (0.0-2.0); Eosinophils # (auto) 0.1 10 ^3/uL (0-0.8); Eosinophils % (auto) 0.9 % (0.0-7.0); Hematocrit 34.8 % (41.0-53.0); Lymphocytes # (auto) 1.7 10 ^3/uL (0.4-5.4); Lymphocytes % (auto) 31.2 % (10.0-50.0); Mean Corpuscular Hemoglobin 30.1 pg (28.0-32.0); Mean Corpuscular Hgb Conc. 31.6 g/dL (32.0-36.0); Mean Corpuscular Volume 95.1 fL (80.0-100.0); Monocytes % (auto) 17.1 % (0.0-12.0); Neutrophils # (auto) 2.8 10 ^3/uL (1.6-8.6); Neutrophils % (auto) 50.3 % (37.0-80.0); Nucleated Red Blood Cells % 0.1 %; Red Blood Cells 3.66 10^6/uL (4.5-5.90); Red Cell Distribution Width 16.2 % (11.8-14.3); White Blood Cell 5.6 10^3/uL (4.4-10.8)
[2023-08-03 09:08] LABS: Chloride 104 mmol/L (98-107); Sodium 139 mmol/L (136-145)
[2023-08-03 09:09] LABS: Anion Gap 5 (5-15); Calcium 8.9 mg/dL (8.5-10.1); Carbon Dioxide 30 mmol/L (20-30)
[2023-08-03 09:14] LABS: BUN/Creatinine Ratio 7.6 (10.0-20.0); Blood Urea Nitrogen 7 mg/dL (9-23); Glucose 122 mg/dL (74-106)
[2023-08-03] MEDS: FUROSEMIDE 20 MG/2 ML VIAL IV SCH ×2 (09:24→22:09)
[2023-08-03] MEDS: PANTOPRAZOLE 40 MG/10 ML VIAL INJ IV SCH (09:24)
[2023-08-03] MEDS: METOPROLOL TARTRATE 50 MG TAB PO SCH ×2 (09:28→22:00)
[2023-08-03] MEDS: APIXABAN 5 MG TAB PO SCH ×2 (09:28→22:09)
[2023-08-03] MEDS: CLOPIDOGREL BISULFATE 75 MG TAB PO SCH (09:30)
[2023-08-03] MEDS: DOXYCYCLINE 100 MG TAB/CAP PO SCH (09:30)
[2023-08-03] MEDS: buPROPion HCL 100 MG TAB PO SCH (09:30)
[2023-08-03] MEDS: amLODIPine BESYLATE 5 MG TAB PO SCH (09:30)
[2023-08-03] MEDS: ARIPIPRAZOLE 30 MG PO SCH (09:31)
[2023-08-03] MEDS: PRAVASTATIN SODIUM 20 MG TAB PO SCH (09:45)
[2023-08-03 09:46] LABS: Magnesium 1.6 mg/dL (1.6-2.6)
[2023-08-03] MEDS: SILVER SULFADIAZINE 1 % TOPICAL CREAM 50GM TOP SCH (10:08)
[2023-08-03] MEDS: MORPHINE SULFATE INJ 2 MG/ml SYRG IV PRN ×2 (13:23→22:53)
[2023-08-03] MEDS: TAMSULOSIN HYDROCHLORIDE 0.4 MG CAP PO SCH (18:17)
[2023-08-03] MEDS: MAGNESIUM SULFATE 1GM/100ML 100 ML IV SCH ×2 (18:18→19:11)
[2023-08-04] VITALS (8 sets, daily range): BP systolic 112–141; BP diastolic 63–76; PULSE 65–87; RESP 16–22; TEMP 97.8–98.5; O2SAT 92–100
[2023-08-04] MEDS: AMPICILLIN & SULBACTAM SODIUM 3 GM in SODIUM CHL 0.9% 100 ML IV SCH (03:46)
[2023-08-04] MEDS: MORPHINE SULFATE INJ 2 MG/ml SYRG IV PRN ×3 (04:50→18:12)
[2023-08-04] MEDS: ACCU-CHEK COMFORT CURVE STRIP VI SCH ×4 (06:05→21:37)
[2023-08-04] MEDS: InsuLIN REG 1unit/0.01ml Soln (100units/ml) SC SCH ×4 (06:11→21:38)
[2023-08-04] MEDS ORDERED: FUROSEMIDE 20 MG TAB PO SCH (10:00)
[2023-08-04] MEDS: SILVER SULFADIAZINE 1 % TOPICAL CREAM 50GM TOP SCH (10:35)
[2023-08-04] MEDS: PANTOPRAZOLE 40 MG/10 ML VIAL INJ IV SCH (10:37)
[2023-08-04] MEDS: APIXABAN 5 MG TAB PO SCH ×2 (10:38→21:36)
[2023-08-04] MEDS: AMOXICILLIN/CLAVUL 875 MG TAB PO SCH ×2 (10:38→21:37)
[2023-08-04] MEDS: ARIPIPRAZOLE 30 MG PO SCH (10:38)
[2023-08-04] MEDS: amLODIPine BESYLATE 5 MG TAB PO SCH (10:39)
[2023-08-04] MEDS: METOPROLOL TARTRATE 50 MG TAB PO SCH ×2 (10:39→21:14)
[2023-08-04] MEDS: buPROPion HCL 100 MG TAB PO SCH (10:40)
[2023-08-04] MEDS: PRAVASTATIN SODIUM 20 MG TAB PO SCH (10:40)
[2023-08-04] MEDS ORDERED: FUROSEMIDE 40 MG TAB PO ONE (10:45)
[2023-08-04] MEDS: TAMSULOSIN HYDROCHLORIDE 0.4 MG CAP PO SCH (17:35)
[2023-08-05] VITALS (7 sets, daily range): BP systolic 131–147; BP diastolic 61–76; PULSE 68–71; RESP 15–23; TEMP 98.2–98.9; O2SAT 92–98
[2023-08-05] MEDS: MORPHINE SULFATE INJ 2 MG/ml SYRG IV PRN ×3 (04:35→18:10)
[2023-08-05] MEDS: ACCU-CHEK COMFORT CURVE STRIP VI SCH ×4 (06:12→23:02)
[2023-08-05] MEDS: InsuLIN REG 1unit/0.01ml Soln (100units/ml) SC SCH ×4 (06:12→22:00)
[2023-08-05] MEDS: ARIPIPRAZOLE 30 MG PO SCH (11:14)
[2023-08-05] MEDS: PANTOPRAZOLE 40 MG/10 ML VIAL INJ IV SCH (11:14)
[2023-08-05] MEDS: AMOXICILLIN/CLAVUL 875 MG TAB PO SCH ×2 (11:15→22:00)
[2023-08-05] MEDS: APIXABAN 5 MG TAB PO SCH ×2 (11:15→22:57)
[2023-08-05] MEDS: METOPROLOL TARTRATE 50 MG TAB PO SCH ×2 (11:16→22:57)
[2023-08-05] MEDS: FUROSEMIDE 40 MG TAB PO SCH (11:16)
[2023-08-05] MEDS: amLODIPine BESYLATE 5 MG TAB PO SCH (11:16)
[2023-08-05] MEDS: buPROPion HCL 100 MG TAB PO SCH (11:17)
[2023-08-05] MEDS: SILVER SULFADIAZINE 1 % TOPICAL CREAM 50GM TOP SCH (11:17)
[2023-08-05] MEDS: PRAVASTATIN SODIUM 20 MG TAB PO SCH (11:17)
[2023-08-05] MEDS: TAMSULOSIN HYDROCHLORIDE 0.4 MG CAP PO SCH (17:15)
[2023-08-06] VITALS (7 sets, daily range): BP systolic 112–141; BP diastolic 58–78; PULSE 69–90; RESP 17–24; TEMP 97.4–98.7; O2SAT 93–100
[2023-08-06] MEDS: MORPHINE SULFATE INJ 2 MG/ml SYRG IV PRN ×2 (01:40→08:10)
[2023-08-06] MEDS: ACCU-CHEK COMFORT CURVE STRIP VI SCH ×4 (06:50→22:02)
[2023-08-06] MEDS: InsuLIN REG 1unit/0.01ml Soln (100units/ml) SC SCH ×4 (06:50→22:00)
[2023-08-06] MEDS: PANTOPRAZOLE 40 MG/10 ML VIAL INJ IV SCH (09:53)
[2023-08-06] MEDS: METOPROLOL TARTRATE 50 MG TAB PO SCH ×2 (09:54→22:01)
[2023-08-06] MEDS: PRAVASTATIN SODIUM 20 MG TAB PO SCH (09:54)
[2023-08-06] MEDS: buPROPion HCL 100 MG TAB PO SCH (09:54)
[2023-08-06] MEDS: APIXABAN 5 MG TAB PO SCH ×2 (09:54→22:01)
[2023-08-06] MEDS: AMOXICILLIN/CLAVUL 875 MG TAB PO SCH ×2 (09:55→22:02)
[2023-08-06] MEDS: FUROSEMIDE 40 MG TAB PO SCH (09:55)
[2023-08-06] MEDS: ARIPIPRAZOLE 30 MG PO SCH (09:55)
[2023-08-06] MEDS: amLODIPine BESYLATE 5 MG TAB PO SCH (09:55)
[2023-08-06] MEDS: SILVER SULFADIAZINE 1 % TOPICAL CREAM 50GM TOP SCH (09:56)
[2023-08-06 15:29] LABS: Alanine Aminotransferase 12 U/L (7-40); Albumin 3.4 g/dL (3.2-4.8); Alkaline Phosphatase 214 U/L (46-116); Anion Gap 4 (5-15); Aspartate Aminotransferase 24 U/L (13-40); BUN/Creatinine Ratio 13.7 (10.0-20.0); Blood Urea Nitrogen 14 mg/dL (9-23); Calcium 8.9 mg/dL (8.7-10.4); Carbon Dioxide 33 mmol/L (20-30); Chloride 102 mmol/L (98-107); Glucose 108 mg/dL (74-106); Potassium 3.5 mmol/L (3.5-5.1); Sodium 139 mmol/L (136-145)
[2023-08-06 15:30] LABS: Bilirubin, Total 0.9 mg/dL (0.2-1.0); Total Protein 6.1 g/dL (5.7-8.2)
[2023-08-06] MEDS: TAMSULOSIN HYDROCHLORIDE 0.4 MG CAP PO SCH (17:41)
[2023-08-06 18:30] LABS: Urine Epithelial Cast None Seen /hpf (<5)
[2023-08-06 18:42] LABS: Urine Bacteria FEW /hpf (None Seen); Urine Blood Negative /uL (Negative); Urine Clarity Clear (Clear); Urine Color Yellow (Yellow); Urine Protein, UAD TRACE (Negative); Urine Specific Gravity 1.018 (1.001-1.035); Urine WBC 3 /hpf (0 - 3)
[2023-08-07] VITALS (9 sets, daily range): BP systolic 114–127; BP diastolic 55–74; PULSE 60–77; RESP 16–22; TEMP 97.8–98.8; O2SAT 93–100
[2023-08-07] MEDS: MORPHINE SULFATE INJ 2 MG/ml SYRG IV PRN ×2 (06:07→16:23)
[2023-08-07] MEDS: InsuLIN REG 1unit/0.01ml Soln (100units/ml) SC SCH ×4 (06:08→22:00)
[2023-08-07] MEDS: ACCU-CHEK COMFORT CURVE STRIP VI SCH ×4 (06:08→22:05)
[2023-08-07] MEDS: APIXABAN 5 MG TAB PO SCH ×2 (10:12→21:54)
[2023-08-07] MEDS: PANTOPRAZOLE 40 MG/10 ML VIAL INJ IV SCH (10:12)
[2023-08-07] MEDS: AMOXICILLIN/CLAVUL 875 MG TAB PO SCH ×2 (10:12→21:54)
[2023-08-07] MEDS: ARIPIPRAZOLE 30 MG PO SCH (10:12)
[2023-08-07] MEDS: FUROSEMIDE 40 MG TAB PO SCH (10:20)
[2023-08-07] MEDS: amLODIPine BESYLATE 5 MG TAB PO SCH (10:21)
[2023-08-07] MEDS: buPROPion HCL 100 MG TAB PO SCH (10:21)
[2023-08-07] MEDS: METOPROLOL TARTRATE 50 MG TAB PO SCH ×2 (10:21→21:55)
[2023-08-07] MEDS: SILVER SULFADIAZINE 1 % TOPICAL CREAM 50GM TOP SCH (10:21)
[2023-08-07] MEDS: PRAVASTATIN SODIUM 20 MG TAB PO SCH (10:21)
[2023-08-07 10:29] LABS: Basophils # (auto) 0 10 ^3/uL (0-0.2); Basophils % (auto) 0.3 % (0.0-2.0); Eosinophils # (auto) 0.1 10 ^3/uL (0-0.8); Hematocrit 30.5 % (41.0-53.0); Hemoglobin 9.7 g/dL (13.5-17.5); Lymphocytes # (auto) 1.5 10 ^3/uL (0.4-5.4); Lymphocytes % (auto) 28.5 % (10.0-50.0); Mean Corpuscular Hemoglobin 30.7 pg (28.0-32.0); Mean Corpuscular Hgb Conc. 31.8 g/dL (32.0-36.0); Mean Corpuscular Volume 96.7 fL (80.0-100.0); Monocytes # (auto) 0.8 10 ^3/uL (0-1.3); Monocytes % (auto) 15.5 % (0.0-12.0); Neutrophils % (auto) 54.7 % (37.0-80.0); Red Blood Cells 3.15 10^6/uL (4.5-5.90); Red Cell Distribution Width 16.1 % (11.8-14.3); White Blood Cell 5.4 10^3/uL (4.4-10.8)
[2023-08-07 10:55] LABS: Alanine Aminotransferase 13 U/L (7-40); Albumin 3.2 g/dL (3.2-4.8); Alkaline Phosphatase 193 U/L (46-116); Anion Gap 4 (5-15); Aspartate Aminotransferase 25 U/L (13-40); BUN/Creatinine Ratio 14.3 (10.0-20.0); Bilirubin, Total 0.9 mg/dL (0.2-1.0); Blood Urea Nitrogen 15 mg/dL (9-23); Calcium 9.1 mg/dL (8.5-10.1); Carbon Dioxide 32 mmol/L (20-30); Chloride 104 mmol/L (98-107); Glucose 97 mg/dL (74-106); Potassium 3.5 mmol/L (3.5-5.1); Sodium 140 mmol/L (136-145); Total Protein 5.7 g/dL (5.7-8.2)
[2023-08-07] MEDS ORDERED: METO-289 PO (15:13)
[2023-08-07] MEDS ORDERED: OMEP1CAP70 PO (15:15)
[2023-08-07] MEDS ORDERED: SIMV40TA18 PO (15:19)
[2023-08-07] MEDS ORDERED: GABA-1250 PO (15:27)
[2023-08-07] MEDS ORDERED: FURO20TA3 PO (15:27)
[2023-08-07] MEDS: TAMSULOSIN HYDROCHLORIDE 0.4 MG CAP PO SCH (17:42)
[2023-08-08] VITALS (8 sets, daily range): BP systolic 113–136; BP diastolic 55–77; PULSE 59–86; RESP 16–20; TEMP 97.7–98.4; O2SAT 94–100
[2023-08-08] MEDS: MORPHINE SULFATE INJ 2 MG/ml SYRG IV PRN ×3 (02:27→22:05)
[2023-08-08] MEDS: ACCU-CHEK COMFORT CURVE STRIP VI SCH ×4 (06:37→22:02)
[2023-08-08] MEDS: InsuLIN REG 1unit/0.01ml Soln (100units/ml) SC SCH ×4 (06:37→22:00)
[2023-08-08] MEDS: APIXABAN 5 MG TAB PO SCH ×2 (09:25→22:03)
[2023-08-08] MEDS: PRAVASTATIN SODIUM 20 MG TAB PO SCH (09:26)
[2023-08-08] MEDS: PANTOPRAZOLE 40 MG/10 ML VIAL INJ IV SCH (09:26)
[2023-08-08] MEDS: METOPROLOL TARTRATE 50 MG TAB PO SCH ×2 (09:34→22:04)
[2023-08-08] MEDS: SILVER SULFADIAZINE 1 % TOPICAL CREAM 50GM TOP SCH (09:35)
[2023-08-08] MEDS: amLODIPine BESYLATE 5 MG TAB PO SCH (09:35)
[2023-08-08] MEDS: AMOXICILLIN/CLAVUL 875 MG TAB PO SCH ×2 (09:36→22:05)
[2023-08-08] MEDS: ARIPIPRAZOLE 30 MG PO SCH (09:36)
[2023-08-08] MEDS: FUROSEMIDE 40 MG TAB PO SCH (09:36)
[2023-08-08] MEDS: buPROPion HCL 100 MG TAB PO SCH (12:28)
[2023-08-08] MEDS: BUPROPION HCL 300 MG PO SCH (12:40)
[2023-08-08] MEDS: TAMSULOSIN HYDROCHLORIDE 0.4 MG CAP PO SCH (18:25)
[2023-08-09] MEDS: MORPHINE SULFATE INJ 2 MG/ml SYRG IV PRN (04:24)
[2023-08-09] MEDS: ACCU-CHEK COMFORT CURVE STRIP VI SCH ×2 (06:04→11:32)
[2023-08-09] MEDS: InsuLIN REG 1unit/0.01ml Soln (100units/ml) SC SCH ×2 (06:04→11:30)
[2023-08-09 08:00] VITALS: BP 131/77; PULSE 60; PULSE 72; RESP 20; TEMP 98.4; O2SAT 97
[2023-08-09] MEDS: APIXABAN 5 MG TAB PO SCH (09:10)
[2023-08-09] MEDS: METOPROLOL TARTRATE 50 MG TAB PO SCH (09:10)
[2023-08-09] MEDS: PRAVASTATIN SODIUM 20 MG TAB PO SCH (09:10)
[2023-08-09] MEDS: PANTOPRAZOLE 40 MG/10 ML VIAL INJ IV SCH (09:11)
[2023-08-09] MEDS: FUROSEMIDE 40 MG TAB PO SCH (09:11)
[2023-08-09] MEDS: amLODIPine BESYLATE 5 MG TAB PO SCH (09:11)
[2023-08-09] MEDS: BUPROPION HCL 300 MG PO SCH (09:32)
[2023-08-09] MEDS: ARIPIPRAZOLE 30 MG PO SCH (09:32)
[2023-08-09] MEDS: AMOXICILLIN/CLAVUL 875 MG TAB PO SCH (09:33)
[2023-08-09] MEDS: SILVER SULFADIAZINE 1 % TOPICAL CREAM 50GM TOP SCH (09:33)
[2023-08-09 09:54] VITALS: BP 115/72; PULSE 75; RESP 17; TEMP 98; O2SAT 100
[2023-08-09 13:00] VITALS: BP 127/62; PULSE 70; RESP 17; TEMP 98.1; O2SAT 95
[2023-08-09 13:09] VITALS: PULSE 60
== END 2023-08-09 15:30 | disposition hospice, home (50) | DRG 140 ==
LOC: EDUNIT# 08:19 → EDBD 08:19 → ER 08:19 → TELE 10:58 → TELE-WESTW 23:21
PROVIDERS: ADMIT Nurse Practitioner Family; ATTEND Nurse Practitioner Acute Care
PROC: 05H933Z Insertion of Infusion Device into Right Brachial Vein, Percutaneous Approach (ICD-10-PCS; principal; 2023-08-01)
PROC: B54MZZA Ultrasonography of Right Upper Extremity Veins, Guidance (ICD-10-PCS; 2023-08-01)
DX: J44.1 Chronic obstructive pulmonary disease with (acute) exacerbation (principal); I50.33 Acute on chronic diastolic (congestive) heart failure; D69.6 Thrombocytopenia, unspecified; J96.11 Chronic respiratory failure with hypoxia; I48.20 Chronic atrial fibrillation, unspecified; B95.2 Enterococcus as the cause of diseases classified elsewhere; E11.65 Type 2 diabetes mellitus with hyperglycemia; D64.9 Anemia, unspecified; I11.0 Hypertensive heart disease with heart failure; D69.59 Other secondary thrombocytopenia; R74.01 Elevation of levels of liver transaminase levels; K21.9 Gastro-esophageal reflux disease without esophagitis; F31.9 Bipolar disorder, unspecified; H11.32 Conjunctival hemorrhage, left eye; M19.90 Unspecified osteoarthritis, unspecified site; F17.210 Nicotine dependence, cigarettes, uncomplicated; N40.0 Benign prostatic hyperplasia without lower urinary tract symptoms; F10.10 Alcohol abuse, uncomplicated; T21.04XA Burn of unspecified degree of lower back, initial encounter; E66.01 Morbid (severe) obesity due to excess calories; Z79.01 Long term (current) use of anticoagulants; Z68.38 Body mass index [BMI] 38.0-38.9, adult; Z71.3 Dietary counseling and surveillance; Z95.0 Presence of cardiac pacemaker; Z83.3 Family history of diabetes mellitus; Z82.49 Family history of ischemic heart disease and other diseases of the circulatory system; Z99.81 Dependence on supplemental oxygen
CPT/HCPCS: 36415; 70450; 70486; 71045; 73030; 74018; 76775; 80048; 80053; 80061; 80320; 81001; 82607; 82962; 83735; 83880; 84443; 84484; 85007; 85025; 85027; 85610; 85730; 87077; 87086; 87186; 87205; 93005; 93886; 97110; 97116; 97163; 97530; 99291; C9113; G0378; J1815